=== PATIENT | male | born 1935 | race Caucasian/White ===

== ENCOUNTER 2019-04-25 11:21 | Observation (INO) | payer MEDICARE, SELFPAY ==
[2019-04-25] VITALS (13 sets, daily range): BP systolic 125–143; BP diastolic 73–96; PULSE 79–104; RESP 12–20; TEMP 36.6–37.9; O2SAT 90–98; BMI 26.8; BMI 26.9
--- NOTE | 2019-04-25 11:39 | EKG12_ITS ---
Test Reason : SOB Blood Pressure : / mmHG Vent. Rate : 087 BPM Atrial Rate : 087 BPM P-R Int : 166 ms QRS Dur : 084 ms QT Int : 352 ms P-R-T Axes : 030 -28 050 degrees QTc Int : 423 ms Normal sinus rhythm Normal ECG Confirmed by CAMELIA RIOS ([id number]), web content editor DENNIS MCINTOSH ([id number]) on 04/29/2019 2:39:15 PM Referred By: Elfego Lugo Confirmed By:CAMELIA RIOS
--- NOTE | 2019-04-25 11:39 | RAD_ITS ---
STUDY: X-RAY CHEST REASON FOR EXAM: Male, 83 years old. Worsening shortness of breath TECHNIQUE: PA and 2 lateral views of the chest. COMPARISON: 07/18/2016 FINDINGS: EKG leads overlie the chest Lungs are expanded with bibasilar atelectasis. No organizing infiltrate or effusion. There is no demonstrated pleural abnormality. Normal size heart. Normal mediastinum and kyung. Normal visualized pulmonary arteries. Normal visualized aortic arch and descending thoracic aorta. There are diffuse degenerative changes of the visualized thoracic spine. Normal visualized ribs, clavicles, and shoulders. There is no demonstrated abnormality of the visualized soft tissue structures of the upper abdomen. RAD/Chest PA and Lateral IMPRESSION: Bibasilar atelectasis, no superimposed infiltrate or effusion Electronically Signed: Arun Leyva MD at 12:24 EDT , Service support ,
[2019-04-25 11:46] LABS: Absolute Lymphocyte Count 0.79 X10^3/uL (0.83-4.51); Absolute Neutrophil Count 4.3 X10^3/uL (2.0-7.7); Basophil# 0.05 X10^3/uL; Basophil% 0.8 % (0-1); Eosinophil# 0.22 X10^3/uL; Eosinophils% 3.5 % (0-5); Hematocrit 43.4 % (40-54); Hemoglobin 14.1 g/dL (13.0-16.5); Lymphocyte # 0.79 X10^3/ul (4.0); Lymphocyte % 12.6 % (19-41); Mean Corp Hgb Conc 32.5 g/dL (32-36); Mean Corpuscular Volume 89.1 fL (80-94); Mean Platelet Vol. 9.2 fl (6.2-12.0); Monocyte# 0.84 X10^3/uL; Monocyte% 13.4 % (0-10); NRBC Flagged by Analyzer 0 % (0-5); Neutrophil # 4.33 X10^3/uL (2.7-7.7); Neutrophil % 69.4 % (47-70); Platelet Count 149 K/mm3 (150-450); RBC Distribution Width CV 12.6 % (11.6-14.6); RBC Distribution Width SD 41.3 fl (35.1-43.9); Red Blood Count 4.87 M/mm3 (4.6-6.2); White Blood Count 6.3 K/mm3 (4.4-11.0)
[2019-04-25] MEDS: Ipratropium/Albuterol Sulfate 3 ML AMPUL.NEB INHALATION (11:46)
[2019-04-25 11:55] LABS: International Normalized Ratio 1.1
[2019-04-25 11:56] LABS: Partial Thromboplast Time 30.4 Seconds (24.1-36.2)
[2019-04-25 12:03] LABS: ALB/GLOB Ratio 1.1 RATIO (0.9-2.4); AST(SGOT) 16 U/L (15-37); Alanine Aminotransfer ALT/SGPT 23 U/L (16-61); Albumin, Serum 3.7 g/dL (3.2-5.0); Alkaline Phosphatase 118 U/L (45-117); Anion Gap 3 (5-15); BUN 10 mg/dL (7-18); BUN/Creat Ratio 8.8 RATIO (10-20); Calcium,Total 8.5 mg/dL (8.5-10.1); Chloride 104 mmol/L (98-107); Creatinine, Serum 1.13 mg/dL (0.70-1.30); EST Glomerular Filtration Rate 66 mL/min (>60); Est Glom Filt Rate - Afr Amer 79 mL/min (>60); Estimated Creatinine Clearance 50.25 ml/min; Globulin 3.4 g/dL (2.2-4.2); Glucose 99 mg/dL (74-106); Potassium 4.1 mmol/L (3.5-5.1); Protein, Total 7.1 g/dL (6.4-8.2); Sodium Level 138 mmol/L (136-145)
[2019-04-25 12:11] LABS: Lactic Acid 1.6 mmol/L (0.4-2.0)
[2019-04-25] MEDS: Ceftriaxone 1 GM/50 ML BAG IV (12:20)
--- NOTE | 2019-04-25 12:21 | ED.DCSUM_ITS ---
History of Present Illness Chief Complaint: Cough Informant: EMS Narrative: Patient presenting for evaluation secondary to shortness of breath and cough. Patient has dementia history was provided through his who is his caregiver. Patient apparently has been ill over the course of the last couple of days but significantly worse yesterday. Its been associated with tactile fevers cough and shortness of breath. states that he has been having increased confusion. Cough is somewhat productive. No nausea vomiting or diarrhea associated with it. states that she recently has been having increasing difficulty with caring for him at home, and has been moving forward on attemp ting to find placement for him. Past Medical History - Allergies and Home Meds Allergies/Adverse Reactions: Allergies No Known Allergies Allergy (Verified 07/18/16 10:16) Primary Care Physician: Pipo Lutz MD [Primary Care Provider] - Past Medical History: - - Hypertension, asthma, dementia Lives: Spouse/ Significant Other Smoking Status: Former smoker Review of Systems All systems negative except as indicated General: Reports: Fever Respiratory: Reports: Dyspnea, Cough Gastrointestinal: Denies: Nausea, Vomiting Neurological: Reports: Weakness, - - Confusion Physical Exam Vital Signs/Narrative: Vital Signs Temp Pulse Resp BP Pulse Ox 04/25/19 11:47 88 20 H 04/25/19 11:43 100.3 F H 04/25/19 11:42 100.3 F H 94 12 133/88 H 96 04/25/19 11:40 96 04/25/19 11:22 100.0 F H 80 20 H 133/88 H 90 Inital Vital Signs reviewed: Yes - Hypoxia on room air as noted General: Well nourished, Well developed Head: Normocephalic, Atraumatic Eyes: Perrl, EOMI Neck: Supple, Nontender Cardiovascular: Regular rate, Regular rhythm, No murmurs Respiratory: Rhonchi, Wheezing - Right greater than left Abdomen: Soft, Nontender, Nondistended, Normal bowel sounds Extremities: Nontender, No edema Skin: Normal color, No rash Neurological: Alert, - - No lateralizing deficits. Patient is somewhat confused. Psychological: Normal affect Diagnostic/Tx/Re-eval Chest X-Ray - ED: 2 View, Read by ED Physician - Left lower lobe infiltrate noted with evidence of hiatal hernia - EKG Initial EKG Interpretation: - - Sinus rhythm of [address] segments normal T waves no evidence of acute ischemia or arrhythmia no change from prior EKG - Medical Decision Making Patient presented secondary to shortness of breath confusion. Patient was found to be hypoxic with wheezes and fever and asymmetric breath sounds. Work-up shows the patient to have a normal CBC CMP and lactic. EKG was unremarkable. Chest x-ray shows infiltrate. Patient was given a breathing treatment in the emergency department was placed on supplemental oxygen will be started on Rocephin and azithromycin. Social work was consulted to help with ultimate placement of the patient after his medical issue was treated in the hospital. Patient will be admitted to the hospitalist. Disposition: Admit to Med Surg ED Disposition - Plan for ED Patient: Disposition: Acute Care Hospital [facility] Diagnosis: Pneumonia, Hypoxia, Dementia
--- NOTE | 2019-04-25 12:27 | CM.ED ---
Social Work Patient daughter, Barbie able to provide this social organization professor with Health Care Power of Hemodialysis Patient Care Specialist documents. Patient does not have a Living Will and is not interested in completing one. Copy of Health Care Power of Hemodialysis Patient Care Specialist documents placed on patient chart. Barbie is patient health care power of attorney at law. Nisha SANDY, LAURA
--- NOTE | 2019-04-25 12:31 | CM.ED ---
Social Work Referral: Resources Informant: Dr. Bruner Chief Complaint: Per patient spouse things are getting hard at home. Living Situation: Patient lives with spouse in a 1-story home with no steps to enter. DME: Patient does not utilize any DME. ADL's: Per patient spouse patient needs stand by assist for ADL's. Resources: Elder Inorganic Chemical Technician. Patient family has been working with an elder compliance attorney for assistance in transitioning patient to a fdc setting as patient spouse is primary child care assistant for patient and now stating to be unable to meet patient needs. Patient spouse uses a cane to ambulate. HCPOA: Barbie Dutta (patient daughter) is HCPOA. Documents were placed on patient chart to be scanned to [facility]. Mental Status Exam: Patient confused. Patient unable to state time of year, day or month. Patient unaware of where patient is located at this time. This social media executive did attempt to orient patient x2 attempts and patient was unable to be oriented. Assessment: Met with patient, patient spouse, Elaine and patient daughter, Barbie in room. Introduced self as well as social media executive role, agreeable to meeting with this social media executive. Elaine stating to be working towards placement for patient over this past summer as Elaine is stating to not be able to care for patient at home. Patient has had home health services through [facility] in the past but is not active with any home health care. Elaine stating to not be interested in instructional aide care as he (patient) would not like that. Barbie stating to have been working with compliance attorney on Medicaid application, for the future and that currently Medicaid is pending. Elaine stating to have contacted the [facility] this morning and that the [facility] would be patient first choices at this time. Barbie is agreeable with above information as Barbie is Health Care Power of Inorganic Chemical Technician. Collaborating with Dr. Bruner, patient to be admitted for medical management. Social work to continue to follow patient on acute care setting with transition of care. Barbie and Elaine aware that social work will follow up with patient in acute care setting. Nisha Castillo INDUSTRIAL SEWER, LAURA
--- NOTE | 2019-04-25 12:47 | PCM.HP.STD ---
Problem List (1) Viral bronchitis Status: Acute (2) Asthma Status: Chronic (3) Depression Status: Chronic (4) Hypertension Status: Chronic (5) History of prostate cancer Status: Chronic (6) Hypoxia Status: Acute (7) Dementia Status: Chronic History of Present Illness Date of Admission: 04/25/19 Chief Complaint: Cough, sore throat and congestion. The patient is a 83 year old M with past medical history as mentioned above presented to the emergency room because of cough, weakness, congestion and sore throat. The patient is demented and was not able to provide detailed consistent history. Patient's was at the bedside and she provided most of the information. According to the patient's , patient has been sick for the last 2 to 3 days with productive cough with small amount of clear sputum, associated with low-grade fever, nasal and sinus congestion as well as sore throat and without aggravating or relieving factors. Since yesterday, patient has been more sick, having more sinus congestion and he has been coughing constantly. Patient mentioned that he has been having more shortness of breath since yesterday. Patient has history of asthma and his mentioned he has been having some occasional wheezes since yesterday and he has been using albuterol nebulizer. Patient's states that over the last several weeks, patient has been more weak and he is demented and she is not able to take care of him at home she has been looking into placement to halfway facility. In the emergency department, he had low-grade fever, pulse ox was 90% on room air, other vital signs are stable. His routine blood work was unremarkable. Lactic acid was normal. LFT was normal. Chest x-ray showed bilateral basilar atelectasis, no acute infiltrate or consolidation. He is being admitted for URTI, viral bronchitis with hypoxia. Past Medical History Past Medical History (Chronic Problems): Chronic Problems Asthma (Chronic) Depression (Chronic) Hypertension (Chronic) History of prostate cancer (Chronic) Dementia (Chronic) Allergies No Known Allergies Allergy (Verified 07/18/16 10:16) Home Medications: Ambulatory Orders Medication Instructions Recorded Latanoprost 0.005% [Xalatan 1 drop EACH EYE DAILY 11/17/15 Opthalmic] Mometasone Furoate [Asmanex 110 220 mcg INHALATION DAILY 11/17/15 mcg Twisthaler] Venlafaxine HCl [Effexor] 150 mg PO QHS 11/17/15 traZODone [Desyrel] 75 mg PO QHS 11/17/15 Memantine Hydrochloride [Namenda] 5 mg PO DAILY 07/18/16 Albuterol Inhaler [Ventolin Hfa] 1 - 2 puff INHALATION Q4H PRN PRN 07/20/16 #1 inhaler Amlodipine [Norvasc] 10 mg PO DAILY #30 tablet 07/20/16 Aspirin [Aspirin, Baby] 81 mg PO DAILY@0800 #30 tab.chew 07/20/16 Metoprolol(XL)Succ [Toprol Xl 25 mg PO DAILY #30 tablet 07/20/16 (Beta Tyron)] Benzonatate [Tessalon Perle] 100 mg PO TID 04/25/19 Montelukast Sodium [Singulair] 10 mg PO DAILY 04/25/19 Surgical History: - - Radical prostatectomy. Psychiatric History: Depression Lives: Spouse/ Significant Other Smoking Status: Former smoker Alcohol: None Drugs: None - *Family History Maternal History Items: No pertinent history Paternal History Items: No pertinent history Review of Systems Constitutional: Reports: Anorexia, Fever, Weakness, Fatigue. Denies: Chills Eyes: Reports: Redness. Denies: Blurred vision, Double vision, Drainage HEENT: Reports: Nasal Congestion, Sinus Drainage, Sore Throat. Denies: Difficulty Hearing, Ear Pain, Eye Pain Cardiovascular: Denies: Chest Pain, Chest Pressure, Chest Tightness, Palpitations, Syncope Respiratory: Reports: Cough, Shortness of Breath, Sputum production, Wheezing. Denies: Pleuritic Pain Gastrointestinal: Denies: Abdominal Pain, Constipation, Diarrhea, Nausea, Vomiting Genitourinary: Denies: Dysuria, Frequency, Hematuria Musculoskeletal: Denies: Arm Pain, Back Pain, Foot Pain Skin: Denies: Dryness, Rash Neurological: Denies: Balance problems, Double vision, Change in Speech, Slurred speech, Confusion, Headaches, Incoordination, Numbness Psychiatric: Reports: Depression. Denies: Anxiety Endocrine: Denies: Change in Body Habitus, Polydipsia, Polyuria VTE Information - Inpt Only VTE Present on Admission: No VTE Mechan Device Prophylaxis: None VTE Pharm Prophylaxis ordered?: Yes Patient Problems: Active and Suspected Problems Viral bronchitis (Acute) Hypoxia (Acute) - Physical Exam General: Alert, Cooperative, No apparent distress, Well nourished HEENT: Atraumatic, PERRLA, EOMI, Normocephalic Oral: Moist Mucosa, No Gingival or Mucosal Lesions/ Ulcerations Neck: Supple, No JVD, Negative Carotid Bruits, Trachea Midline, Thyroid Normal Size and Texture Lungs: No rales, Diminished, Rhonchi, Wheezes, - - Minimally diminished breath sounds bilateral, occasional wheezes, rhonchi. Cardiovascular: Regular rate, Regular Rhythm, Normal S1, Normal S2, PMI Normal Abdomen: Bowel Sounds Present, Soft, Non Tender, Non-Distended, No Hepato-splenomegaly Extremities: No clubbing, No cyanosis, No edema Skin: No rashes, No breakdown Lymphatic: No Cervical, Supraclavicular, or Inguinal Adenopathy Neurological: Cranial nerves II-XII grossly intact, Motor Exam 5/5 strength throughout Psych/Mental Status: Normal Affect, Appropriate Vital Signs Temp Pulse Resp BP Pulse Ox 100.3 F H 88 20 H 133/88 H 96 04/25/19 11:43 04/25/19 11:47 04/25/19 11:47 04/25/19 11:42 04/25/19 11:42 Oxygen Flow Rate (L/min) 2 Oxygen Delivery Method Nasal Cannula Weight: 187 lb 2.759 oz Body Mass Index (BMI) 26.8 Laboratory Tests Past 24 Hrs 04/25/19 04/25/19 04/25/19 11:35 11:35 11:35 WBC 6.3 RBC 4.87 Hgb 14.1 Hct 43.4 MCV 89.1 MCH 29.0 MCHC 32.5 RDW Std Deviation 41.3 RDW Coeff of Dolly 12.6 Plt Count 149 L MPV 9.2 Immature Gran % (Auto) 0.300 Neut % (Auto) 69.4 Lymph % (Auto) 12.6 L Ellsworth % (Auto) 13.4 H Eos % (Auto) 3.5 Baso % (Auto) 0.8 Absolute Neuts (auto) 4.3 Absolute Lymphs (auto) 0.79 L Nucleated RBC % 0 PT 14.0 INR 1.1 APTT 30.4 Sodium 138 Potassium 4.1 Chloride 104 Carbon Dioxide 31.0 Anion Gap 3 L BUN 10 Creatinine 1.13 Estim Creat Clear Calc 50.25 Est GFR (MDRD) Af Amer 79 Est GFR (MDRD) Non-Af 66 BUN/Creatinine Ratio 8.8 L Glucose 99 Lactic Acid Calcium 8.5 Total Bilirubin 0.30 AST 16 ALT 23 Alkaline Phosphatase 118 H Total Protein 7.1 Albumin 3.7 Globulin 3.4 Albumin/Globulin Ratio 1.1 04/25/19 11:35 WBC RBC Hgb Hct MCV MCH MCHC RDW Std Deviation RDW Coeff of Dolly Plt Count MPV Immature Gran % (Auto) Neut % (Auto) Lymph % (Auto) Ellsworth % (Auto) Eos % (Auto) Baso % (Auto) Absolute Neuts (auto) Absolute Lymphs (auto) Nucleated RBC % PT INR APTT Sodium Potassium Chloride Carbon Dioxide Anion Gap BUN Creatinine Estim Creat Clear Calc Est GFR (MDRD) Af Amer Est GFR (MDRD) Non-Af BUN/Creatinine Ratio Glucose Lactic Acid 1.6 Calcium Total Bilirubin AST ALT Alkaline Phosphatase Total Protein Albumin Globulin Albumin/Globulin Ratio Clinical Impression(s) from Imaging Studies Chest X-Ray 04/25/19 11:39 IMPRESSION: Bibasilar atelectasis, no superimposed infiltrate or effusion Electronically Signed: Arun Leyva MD at 12:24 EDT , Service support , Assessment/Plan All Active Problems Viral bronchitis (Acute) Hypoxia (Acute) This is an 83 years old male patient presented to the emergency room because of cough, weakness, sore throat and sinus congestion as well as red eyes, found to be hypoxic and he is being admitted for URTI/viral bronchitis with hypoxia. #1 URTI/viral bronchitis: Without evidence of acute pneumonia. Chest x-ray reviewed. Lactic acid is normal. No leukocytosis. Plan: Admit to [facility] for observation, IV fluids, sputum culture, respiratory panel for viruses, Tylenol as needed, Sudafed as needed, Robitussin-AC as needed, repeat chest x-ray tomorrow morning, urinalysis, repeat CBC and BMP tomorrow morning, albuterol every 4 hours, chest physiotherapy, incentive spirometer, PT OT evaluation and treatment. At this time, I do not think patient needs IV antibiotics and I will repeat chest x-ray tomorrow to look for pneumonia again. #2 hypoxia: Likely because of the URTI and bronchitis in the setting of history of asthma. He does have occasional wheezes. Pulse ox is 90% on room air. Improved with oxygen. Plan: Albuterol [id number], cough expectorant, chest physiotherapy. #3 physical debility/functional decline: According to the patient's , patient has been progressively weak over the last several weeks with dementia and she is unable to take care of him at home. She was looking into placement to halfway facility. Plan: PT OT eval and treatment, social work consult. #4 hypertension: Blood pressure stable, continue Norvasc and metoprolol. #5 history of prostate cancer: Status post radical prostatectomy, in remission stable. Patient does have chronic urinary continence. #6 depression: Continue trazodone and Effexor. #7 dementia: Continue Namenda. #8 asthma: With mild hypoxia, plan as above for albuterol [id number]. #9 DVT prophylaxis: Subcu Lovenox. This note was generated with [employer] dictation software. It may contain incorrect words, spelling, and punctuation that were not noted in checking the note before signing. Code Visit OBSV E&M: 62544 Initial observation care L3
--- NOTE | 2019-04-25 14:02 | CASEMGMT ---
SW spoke with patient's and daughter. Introduced self and role at [facility]. SW explained that SW is aware they were looking at [facility] for patient. They confirmed this plan. SW did give them a list of nursing homes that are in network with their insurance. [facility] was on this list. SW explained that SW will get in contact with [facility] regarding referral. Delia SANCHEZ SEED POTATO CUTTER
--- NOTE | 2019-04-25 14:25 | CASEMGMT ---
KAM called [facility] and spoke with Marleen regarding referral. KAM also faxed over information to [facility]. Delia SANCHEZ MSW
[2019-04-25] MEDS: Haloperidol Lactate 5 MG/ML Vial 2 MG IM (15:01)
[2019-04-25] MEDS: Albuterol 2.5 MG/3 ML VIAL.NEB. INHALATION ×2 (15:12→19:00)
--- NOTE | 2019-04-25 15:45 | NURSING ---
Patient incontinent of urine, total. Straight cath at this time to obtain urine sample.
[2019-04-25] MEDS: 0.9% Normal Saline 1,000 ML 75 ML IV (16:01)
[2019-04-25] MEDS: 0.9% NaCl Peripheral Flush Adult/Peds IV (16:02)
[2019-04-25 16:09] LABS: Bacteria 0 SEEN /hpf (None Seen); Mucous, Urine 0 SEEN /hpf (<or=2+); Red Blood Cells-Urine 0 SEEN /hpf (0-5); White Blood Cells 0 SEEN /hpf (0-5)
[2019-04-25 16:15] LABS: Color, Urine Yellow (Yellow); Glucose, Dipstick Normal (Normal); Ketone-Dipstick Negative (Negative); Leukocyte Esterase-Dipstick Negative /ul (Negative); Nitrite-Dipstick Negative (Negative); Occult Blood-Urine Negative /ul (Negative); Protein-Dipstick Negative (Negative); Specific Gravity, Urine 1.005 (1.002-1.030); Urine Bilirubin Dipstick Negative (Negative); Urine Clarity Clear (Clear); Urine Urobilinogen Normal (Normal)
[2019-04-25 16:30] LABS: Squamous Epithelial Cells - UA 0-5 SEEN /hpf (0-5)
[2019-04-25] MEDS: Benzonatate 100 MG Capsule PO (22:32)
[2019-04-25] MEDS: Venlafaxine XR 150 MG Capsule PO (22:32)
[2019-04-25] MEDS: traZODone 50 MG Tablet 75 MG PO (22:32)
[2019-04-26] VITALS (16 sets, daily range): BP systolic 122–141; BP diastolic 69–92; PULSE 72–107; RESP 14–24; TEMP 36.1–37.6; O2SAT 90–96
[2019-04-26] MEDS: 0.9% Normal Saline 1,000 ML 75 ML IV ×2 (03:44→17:54)
[2019-04-26] MEDS: Benzonatate 100 MG Capsule PO ×3 (05:11→20:24)
--- NOTE | 2019-04-26 05:45 | RAD_ITS ---
STUDY: X-RAY CHEST REASON FOR EXAM: Male, 83 years old. Shortness of breath/dyspnea. TECHNIQUE: Single AP portable view of the chest. COMPARISON: Comparison is made with prior examination dated April 25, 2019. FINDINGS: Stable elevation of the right hemidiaphragm. Mild increased markings at the left lung base. This is suggestive of early left basilar atelectasis and/or infiltrate. This is unchanged. There is no demonstrated pleural abnormality. Normal size heart. Normal mediastinum and kyung. Normal visualized pulmonary arteries. There is atherosclerotic tortuosity of the aortic arch and descending thoracic aorta. There are diffuse degenerative changes of the visualized thoracic spine. There is degenerative osteoarthritis of the bilateral shoulders. There is no demonstrated abnormality of the visualized soft tissue structures of the upper abdomen. RAD/Chest 1 View (Portable) IMPRESSION: Increased markings at the left lung base suggestive of left basilar atelectasis and infiltrate. This is unchanged. The right lung base is clear. Electronically Signed: Thomas Quinn, at 8:32 EDT , Service support ,
[2019-04-26] MEDS: Albuterol 2.5 MG/3 ML VIAL.NEB. INHALATION ×5 (06:47→23:02)
[2019-04-26 07:03] LABS: Absolute Lymphocyte Count 0.83 X10^3/uL (0.83-4.51); Absolute Neutrophil Count 6.4 X10^3/uL (2.0-7.7); Basophil# 0.02 X10^3/uL; Basophil% 0.2 % (0-1); Eosinophil# 0.03 X10^3/uL; Eosinophils% 0.4 % (0-5); Hemoglobin 13.1 g/dL (13.0-16.5); Lymphocyte # 0.83 X10^3/ul (4.0); Mean Corp Hgb Conc 32.8 g/dL (32-36); Mean Corpuscular Hgb 28.4 pg (27.0-32.0); Mean Corpuscular Volume 86.6 fL (80-94); Mean Platelet Vol. 9.6 fl (6.2-12.0); Monocyte# 0.97 X10^3/uL; Monocyte% 11.7 % (0-10); NRBC Flagged by Analyzer 0 % (0-5); Neutrophil # 6.44 X10^3/uL (2.7-7.7); Neutrophil % 77.5 % (47-70); Platelet Count 154 K/mm3 (150-450); RBC Distribution Width SD 40.6 fl (35.1-43.9); Red Blood Count 4.62 M/mm3 (4.6-6.2); White Blood Count 8.3 K/mm3 (4.4-11.0)
[2019-04-26 07:35] LABS: Anion Gap 7 (5-15); BUN 10 mg/dL (7-18); BUN/Creat Ratio 8.5 RATIO (10-20); Calcium,Total 7.9 mg/dL (8.5-10.1); Chloride 105 mmol/L (98-107); Creatinine, Serum 1.18 mg/dL (0.70-1.30); EST Glomerular Filtration Rate 62 mL/min (>60); Est Glom Filt Rate - Afr Amer 76 mL/min (>60); Glucose 123 mg/dL (74-106); Sodium Level 139 mmol/L (136-145)
--- NOTE | 2019-04-26 08:07 | PN_ITS ---
Patient Problems: Active and Suspected Problems Pneumonia (Acute) Viral bronchitis (Acute) Hypoxia (Acute) Subjective: Chief complaint: Follow-up after admission for URTI due to parainfluenza, viral bronchitis and hypoxia. Patient seen and examined. No acute events overnight. He has been confused, intermittently trying to get out of bed. Patient does have history of dementia. According to nursing staff, patient still coughing. Patient is not able to provide any history because of dementia. He has been afebrile, blood pressure noted are stable, pulse ox is 92% on 2 L. - Physical Exam General: Alert, Cooperative, No apparent distress, Disoriented HEENT: Atraumatic, PERRLA, EOMI, Normocephalic Oral: Moist Mucosa, No Gingival or Mucosal Lesions/ Ulcerations Neck: Supple, No JVD, Negative Carotid Bruits, Trachea Midline, Thyroid Normal Size and Texture Lungs: Clear to auscultation, No wheeze, No rales, Diminished, Rhonchi Cardiovascular: Regular rate, Regular Rhythm, Normal S1, Normal S2, PMI Normal Abdomen: Bowel Sounds Present, Soft, Non Tender, Non-Distended, No Hepato- splenomegaly Extremities: No clubbing, No cyanosis, No edema Skin: No rashes, No breakdown Lymphatic: No Cervical, Supraclavicular, or Inguinal Adenopathy Neurological: Cranial nerves II-XII grossly intact, Motor Exam 5/5 strength throughout Psych/Mental Status: Flat Affect Vital Signs Temp Pulse Resp BP Pulse Ox 99.7 F H 80 20 H 141/78 H 92 04/26/19 06:38 04/26/19 06:47 04/26/19 06:47 04/26/19 06:38 04/26/19 06:47 Oxygen Flow Rate (L/min) 2 Oxygen Delivery Method Nasal Cannula Weight: 182 lb 5.156 oz Body Mass Index (BMI) 26.9 Intake and Output for Last 24 Hours 04/24/19 04/25/19 04/26/19 23:59 23:59 23:59 Intake Total 665 / 665 938.75 / 938.75 Output Total 275 / 275 50 / 50 Balance 390 / 390 888.75 / 888.75 Microbiology Past 72 Hours 04/25/19 13:24 Respiratory Panel (PCR) - Final Mucosa - Nasopharyngeal Parainfluenza 4 Laboratory Tests Past 24 Hrs 04/25/19 04/25/19 04/25/19 11:35 11:35 11:35 WBC 6.3 RBC 4.87 Hgb 14.1 Hct 43.4 MCV 89.1 MCH 29.0 MCHC 32.5 RDW Std Deviation 41.3 RDW Coeff of Dolly 12.6 Plt Count 149 L MPV 9.2 Immature Gran % (Auto) 0.300 Neut % (Auto) 69.4 Lymph % (Auto) 12.6 L [place] % (Auto) 13.4 H Eos % (Auto) 3.5 Baso % (Auto) 0.8 Absolute Neuts (auto) 4.3 Absolute Lymphs (auto) 0.79 L Nucleated RBC % 0 PT 14.0 INR 1.1 APTT 30.4 Sodium 138 Potassium 4.1 Chloride 104 Carbon Dioxide 31.0 Anion Gap 3 L BUN 10 Creatinine 1.13 Estim Creat Clear Calc 50.25 Est GFR (MDRD) Af Amer 79 Est GFR (MDRD) Non-Af 66 BUN/Creatinine Ratio 8.8 L Glucose 99 Lactic Acid Calcium 8.5 Total Bilirubin 0.30 AST 16 ALT 23 Alkaline Phosphatase 118 H Total Protein 7.1 Albumin 3.7 Globulin 3.4 Albumin/Globulin Ratio 1.1 Urine Color Urine Clarity Urine pH Ur Specific [place] Urine Protein Urine Glucose (UA) Urine Ketones Urine Occult Blood Urine Nitrite Urine Bilirubin Urine Urobilinogen Ur Leukocyte Esterase Urine RBC Urine WBC Ur Squamous Epith Cells Urine Bacteria Urine Mucus 04/25/19 04/25/19 04/26/19 11:35 16:00 06:34 WBC 8.3 RBC 4.62 Hgb 13.1 Hct 40.0 MCV 86.6 MCH 28.4 MCHC 32.8 RDW Std Deviation 40.6 RDW Coeff of Dolly 13.0 Plt Count 154 MPV 9.6 Immature Gran % (Auto) 0.200 Neut % (Auto) 77.5 H Lymph % (Auto) 10.0 L [place] % (Auto) 11.7 H Eos % (Auto) 0.4 Baso % (Auto) 0.2 Absolute Neuts (auto) 6.4 Absolute Lymphs (auto) 0.83 Nucleated RBC % 0 PT INR APTT Sodium Potassium Chloride Carbon Dioxide Anion Gap BUN Creatinine Estim Creat Clear Calc Est GFR (MDRD) Af Amer Est GFR (MDRD) Non-Af BUN/Creatinine Ratio Glucose Lactic Acid 1.6 Calcium Total Bilirubin AST ALT Alkaline Phosphatase Total Protein Albumin Globulin Albumin/Globulin Ratio Urine Color Yellow Urine Clarity Clear Urine pH 7.0 Ur Specific [place] 1.005 Urine Protein Negative Urine Glucose (UA) Normal Urine Ketones Negative Urine Occult Blood Negative Urine Nitrite Negative Urine Bilirubin Negative Urine Urobilinogen Normal Ur Leukocyte Esterase Negative Urine RBC 0 SEEN Urine WBC 0 SEEN Ur Squamous Epith Cells 0-5 SEEN Urine Bacteria 0 SEEN Urine Mucus 0 SEEN 04/26/19 06:34 WBC RBC Hgb Hct MCV MCH MCHC RDW Std Deviation RDW Coeff of Dolly Plt Count MPV Immature Gran % (Auto) Neut % (Auto) Lymph % (Auto) Gran[place] % (Auto) Eos % (Auto) Baso % (Auto) Absolute Neuts (auto) Absolute Lymphs (auto) Nucleated RBC % PT INR APTT Sodium 139 Potassium 4.0 Chloride 105 Carbon Dioxide 27.0 Anion Gap 7 BUN 10 Creatinine 1.18 Estim Creat Clear Calc 46.60 Est GFR (MDRD) Af Amer 76 Est GFR (MDRD) Non-Af 62 BUN/Creatinine Ratio 8.5 L Glucose 123 H Lactic Acid Calcium 7.9 L Total Bilirubin AST ALT Alkaline Phosphatase Total Protein Albumin Globulin Albumin/Globulin Ratio Urine Color Urine Clarity Urine pH Ur Specific [place] Urine Protein Urine Glucose (UA) Urine Ketones Urine Occult Blood Urine Nitrite Urine Bilirubin Urine Urobilinogen Ur Leukocyte Esterase Urine RBC Urine WBC Ur Squamous Epith Cells Urine Bacteria Urine Mucus Medical Necessity - Tobacco Use Smoking Status: Former smoker Tobacco Use: Cigarettes, Pipe Assessment/Plan All Active Problems Pneumonia (Acute) Viral bronchitis (Acute) Hypoxia (Acute) This is an 83 years old male patient presented to the emergency room because of cough, weakness, sore throat and sinus congestion as well as red eyes, found to be hypoxic and he is being admitted for URTI/viral bronchitis with hypoxia. #1 URTI/viral bronchitis: He tested positive for parainfluenza. He has been afebrile, still requiring oxygen at 2 L. Repeat chest x-ray reviewed, no evidence of acute infiltrate or consolidation, pending official report. Again, pneumonia is unlikely. Blood and sputum cultures are pending. Plan to continue same treatment, ambulate. #2 hypoxia: Likely because of the URTI and bronchitis in the setting of history of asthma. He is on albuterol every 4 hours. Pulse ox is 92% on 2 L. Plan as above. #3 physical debility/functional decline: According to the patient's , patient has been progressively weak over the last several weeks with dementia and she is unable to take care of him at home. She was looking into placement to senior care facility. Patient probably will need placement to senior care facility. #4 hypertension: Blood pressure stable, continue Norvasc and metoprolol. #5 history of prostate cancer: Status post radical prostatectomy, in remission stable. Patient does have chronic urinary continence. #6 depression: Continue trazodone and Effexor. #7 dementia: Continue Namenda. #8 asthma: With mild hypoxia, continue albuterol [id number]. #9 DVT prophylaxis: Subcu Lovenox. This note was generated with [employer] dictation software. It may contain incorrect words, spelling, and punctuation that were not noted in checking the note before signing. Code Visit OBSV E&M: 29355 Subsequent observation care L2
--- NOTE | 2019-04-26 09:45 | CASEMGMT ---
KAM called Bebe at [facility]. She said she spoke with patient's this am already and she told her that patient had some behaviors at [facility] last night and that this is not like him. She said they are coming in for a tour today at . KAM also let her know patient currently has a sitter as he keeps trying to get out of bed. SNF's cannot accept patient's until they have been free of a sitter for 24 hours. They also need to be free of getting Halodol for at least 24 hours. Patient also needs a pre-cert. Plan: SNF pending acceptance and insurance approval. Delia SANDY
[2019-04-26] MEDS: Memantine Hydrochloride 5 MG Tablet PO (10:11)
[2019-04-26] MEDS: Metoprolol(XL)Succ 25 MG Tablet PO (10:11)
[2019-04-26] MEDS: Montelukast 10 MG Tablet PO (10:12)
[2019-04-26] MEDS: Enoxaparin 40 MG/0.4 ML Syringe SC (10:12)
[2019-04-26] MEDS: Aspirin 81 MG TAB.CHEW PO (10:12)
[2019-04-26] MEDS: amLODIPine 10 MG Tablet PO (10:12)
[2019-04-26] MEDS: Latanoprost 0.005% 1 Bottle 1 DRP EACH EYE (10:15)
--- NOTE | 2019-04-26 10:49 | NURSING ---
Patient resting quietly with family in room. Sitter removed.
--- NOTE | 2019-04-26 11:02 | NURSING ---
Pulling at tubing and equipment, attempting to get out of bed. Sitter placed back in room.
--- NOTE | 2019-04-26 11:40 | NURSING ---
After patient returned back to bed from having a BM, pt no longer pullling at tubes, no further attempts to get OOB, resting peacefully with and daughter at bedside eating lunch.
--- NOTE | 2019-04-26 12:15 | NURSING ---
PATIENT GOTTEN UP IN CHAIR BY THERAPY, CONTINUES TO BE CALM AND CORPORATIVE, NO ATTEMPTS TO PULL AT MEDICAL EQUIPMENT. PT IN CHAIR AT THIS TIME WITH CHAIR EXIT ON.
--- NOTE | 2019-04-26 12:42 | NURSING ---
Sitter removed from room.
--- NOTE | 2019-04-26 12:46 | CASEMGMT ---
RN CM Note. Attempted to complete MURGUIA form. Pt confused and unable to sign at this time. Family is out of room. CM will attempt to speak with family when they return. Ganesh GILLESPIEN RN ACM
[2019-04-26] MEDS: Amitriptyline 10 MG Tablet 5 MG PO ×2 (13:06→21:49)
--- NOTE | 2019-04-26 13:10 | CHAPLAIN ---
Type of Pastoral Visit _x__ Initial Visit ___ Follow-up Visit ___ On-call Visit ___ General Patient Visit ___ Spiritual Assessment ___ Family Conference ___ Bereavement ___ Rapid Response ___ Code Blue ___ Other (describe below) Pastoral Care Referral From _x__ Patient _x__ Family ___ Nurse ___ Physician ___ Bacon De Rinder ___ Occupational Therapy Asst ___ Other (describe below) Sacrament/Intervention _x__ Active listening ___ Anointing ___ Denominational ___ Bereavement ___ Communion _x__ Kenyatta exploration ___ _x__ Life review _x__ Prayer ___ Reconciliation ___ Sacrament of Sick _x__ Supportive presence ___ Wedding ___ Other (describe below) Pastoral Comments conversation and intervention were mostly with and for spouse and daughter; patient was cooperative and accepted support but did not speak much nor initiate any dialogue; daughter is concerned about having spiritual support for her father; family is waiting to see if approvals are given for move into ECF; offer of support given to family as well as patient for today and in the future while in our care
--- NOTE | 2019-04-26 13:31 | CASEMGMT ---
As is already documented, POA forms brought into emergency room, placed on pt's chart, and Barbie is POA. Pt does not have a living will. ROOSEVELT Velazco
--- NOTE | 2019-04-26 14:42 | NURSING ---
PT walked to br on his own, and he also pulled out his IV prior to ambulating to br.
--- NOTE | 2019-04-26 14:57 | CASEMGMT ---
Addendum entered by Delia Loredo 04/26/19 15:26: SW spoke with Bebe at [facility] and family was there for a tour today. She said she was honest with family and the concern that he has a sitter. She said they are aware that [facility] may not be able to accept patient. They will see how he does over the weekend. Delia SANDY Original Note: KAM faxed PT/OT evaluations to [facility] for updates. Patient still has a sitter. He will need to be free of a sitter for 24 hours before a SNF will accept him. He will also need insurance authorization. Delia SANDY
[2019-04-26] MEDS: 0.9% NaCl Peripheral Flush Adult/Peds IV (15:28)
--- NOTE | 2019-04-26 15:46 | CASEMGMT ---
Per RN patient has been sitter free since lunch time. Delia SANCHEZ IPHONE DEVELOPER
--- NOTE | 2019-04-26 16:00 | CASEMGMT ---
Family has still not returned to pt room. This RN CM attempted to reach /daughter(HPOA) without success at this time. Pt is confused and unable to sign. Unable to complete MURGUIA form at this time. This RN CM will leave MURGUIA form for CM tomorrow to complete with family. SStaten [place]ESSY [place]
[2019-04-26] MEDS: Magnesium Hydroxide 30 ML UDC PO (17:52)
[2019-04-26] MEDS: Venlafaxine XR 150 MG Capsule PO (20:24)
[2019-04-26] MEDS: traZODone 50 MG Tablet 75 MG PO (20:24)
[2019-04-27] VITALS (11 sets, daily range): BP systolic 121–128; BP diastolic 65–81; PULSE 77–89; RESP 16–22; TEMP 36.8–36.9; O2SAT 93–98
[2019-04-27] MEDS: Albuterol 2.5 MG/3 ML VIAL.NEB. INHALATION ×6 (02:10→23:08)
[2019-04-27] MEDS: 0.9% Normal Saline 1,000 ML 75 ML IV (05:53)
[2019-04-27] MEDS: Benzonatate 100 MG Capsule PO ×3 (05:54→22:13)
--- NOTE | 2019-04-27 08:26 | PCM.PROGNOTE ---
Patient Problems: Active and Suspected Problems Pneumonia (Acute) Viral bronchitis (Acute) Hypoxia (Acute) Subjective: Chief complaint: Follow-up after admission for URTI due to parainfluenza, viral bronchitis and hypoxia. Patient seen and examined. No acute events overnight. He remained confused and disoriented. He was able to answer couple questions. He mentioned that he feels fair, denied worsening shortness of breath. Still having mild cough. He has been afebrile, blood pressure and heart are stable, pulse ox is 94% on 3 L. - Physical Exam General: Alert, Cooperative, No apparent distress, Disoriented HEENT: Atraumatic, PERRLA, EOMI, Normocephalic Oral: Moist Mucosa, No Gingival or Mucosal Lesions/ Ulcerations Neck: Supple, No JVD, Negative Carotid Bruits, Trachea Midline, Thyroid Normal Size and Texture Lungs: Clear to auscultation, Normal air movement, No rhonchi, No wheeze, No rales, Diminished Cardiovascular: Regular rate, Regular Rhythm, Normal S1, Normal S2, PMI Normal Abdomen: Bowel Sounds Present, Soft, Non Tender, Non-Distended, No Hepato-splenomegaly Extremities: No clubbing, No cyanosis, No edema Skin: No rashes, No breakdown Lymphatic: No Cervical, Supraclavicular, or Inguinal Adenopathy Neurological: Cranial nerves II-XII grossly intact, Neuro grossly intact Psych/Mental Status: Flat Affect Vital Signs Temp Pulse Resp BP Pulse Ox 98.5 F 80 16 127/74 H 94 04/27/19 02:27 04/27/19 07:03 04/27/19 07:03 04/27/19 02:27 04/27/19 07:03 Oxygen Flow Rate (L/min) 3 Oxygen Delivery Method Nasal Cannula Weight: 182 lb 5.156 oz Body Mass Index (BMI) 26.9 Intake and Output for Last 24 Hours 04/25/19 04/26/19 04/27/19 23:59 23:59 23:59 Intake Total 665 / 665 1938.75 / 1938.75 896.25 / 896.25 Output Total 275 / 275 50 / 50 Balance 390 / 390 1888.75 / 1888.75 896.25 / 896.25 Microbiology Past 72 Hours 04/25/19 15:30 Gram Stain - Final Sputum, Expectorated/Coughed Respiratory Culture - Preliminary 04/25/19 13:24 Respiratory Panel (PCR) - Final Mucosa - Nasopharyngeal Parainfluenza 4 Medical Necessity - Tobacco Use Smoking Status: Former smoker Tobacco Use: Cigarettes, Pipe Assessment/Plan All Active Problems Pneumonia (Acute) Viral bronchitis (Acute) Hypoxia (Acute) This is an 83 years old male patient presented to the emergency room because of cough, weakness, sore throat and sinus congestion as well as red eyes, found to be hypoxic and he is being admitted for URTI/viral bronchitis with hypoxia. #1 URTI/viral bronchitis: Secondary to parainfluenza. He has been afebrile, oxygen requirement slightly increased to 3 L. Chest x-ray that was done yesterday official read as left lung base atelectasis and infiltrate. Patient remained afebrile, no leukocytosis. Sputum culture revealed mixed respiratory andree. Blood cultures pending. I still think that patient does not have pneumonia. Plan: I will start empiric Levaquin, DC IV fluids, ambulate, wean off oxygen, placement to detention facility. #2 hypoxia: Likely because of the URTI and bronchitis in the setting of history of asthma. Today, is requiring more oxygen at 3 L. Lungs are clear to auscultation. Plan to start empiric antibiotics as above. #3 physical debility/functional decline: According to the patient's , patient has been progressively weak over the last several weeks with dementia and she is unable to take care of him at home. Plan for placement to detention facility. #4 hypertension: Blood pressure stable, continue Norvasc and metoprolol. #5 history of prostate cancer: Status post radical prostatectomy, in remission stable. Patient does have chronic urinary continence. #6 depression: Continue trazodone and Effexor. #7 dementia: Continue Namenda. #8 asthma: With mild hypoxia, continue albuterol [id number]. #9 DVT prophylaxis: Subcu Lovenox. This note was generated with [employer] dictation software. It may contain incorrect words, spelling, and punctuation that were not noted in checking the note before signing. Code Visit Inpatient E&M: 11291 Subs Hosp L2
[2019-04-27] MEDS: Enoxaparin 40 MG/0.4 ML Syringe SC (08:53)
[2019-04-27] MEDS: Memantine Hydrochloride 5 MG Tablet PO (08:53)
[2019-04-27] MEDS: Aspirin 81 MG TAB.CHEW PO (08:53)
[2019-04-27] MEDS: Montelukast 10 MG Tablet PO (08:53)
[2019-04-27] MEDS: amLODIPine 10 MG Tablet PO (08:53)
[2019-04-27] MEDS: Metoprolol(XL)Succ 25 MG Tablet PO (08:53)
[2019-04-27] MEDS: Latanoprost 0.005% 1 Bottle 1 DRP EACH EYE (08:54)
[2019-04-27] MEDS: levoFLOXacin IV 750 MG/150 ML BAG 100 MG IV (10:56)
--- NOTE | 2019-04-27 18:22 | NURSING ---
Patient increasingly agitated. Attempting to get out of bed several times. I am looking for my pants. Reminded patient several times that his took them home. Doesn't want a pair of hospital pants to wear. 1:1 of little value. Patient assisted up to bathroom and back to bed. Continent of urine. Continues to set off bed alarm while attempting to get up out of bed. SOUR BLEACHING PLEATER remains at bedside with patient. RN called pharmacy to send SHAYLA Warren.
[2019-04-27] MEDS: Amitriptyline 10 MG Tablet 5 MG PO (18:44)
[2019-04-27] MEDS: traZODone 50 MG Tablet 75 MG PO (22:13)
[2019-04-27] MEDS: Venlafaxine XR 150 MG Capsule PO (22:13)
[2019-04-28] VITALS (10 sets, daily range): BP systolic 126–135; BP diastolic 59–77; PULSE 69–85; RESP 14–24; TEMP 36.7–36.9; O2SAT 91–96
[2019-04-28] MEDS: Albuterol 2.5 MG/3 ML VIAL.NEB. INHALATION ×4 (07:13→19:54)
--- NOTE | 2019-04-28 07:57 | PN_ITS ---
Patient Problems: Active and Suspected Problems Pneumonia (Acute) Viral bronchitis (Acute) Hypoxia (Acute) Subjective: Chief complaint: Follow-up after admission for URTI due to parainfluenza, viral bronchitis and hypoxia. Patient seen and examined. No acute events overnight. Patient remained confused and disoriented which is his baseline. When I asked him about his breathing, he said it is not good. Apparently, he received breathing treatment this morning. He is having less cough. He has been afebrile, blood pressure has stable, pulse ox is 96% on 1 L. - Physical Exam General: Alert, Cooperative, No apparent distress, Confused, Disoriented HEENT: Atraumatic, PERRLA, EOMI, Normocephalic Oral: Moist Mucosa, No Gingival or Mucosal Lesions/ Ulcerations Neck: Supple, No JVD, Trachea Midline, Thyroid Normal Size and Texture Lungs: No rhonchi, No rales, Diminished, Wheezes, - - Decreased breath sounds bilaterally. Cardiovascular: Regular rate, Regular Rhythm, Normal S1, Normal S2, PMI Normal Abdomen: Bowel Sounds Present, Soft, Non Tender, Non-Distended, No Hepato- splenomegaly Extremities: No clubbing, No cyanosis, No edema Skin: No rashes, No breakdown Lymphatic: No Cervical, Supraclavicular, or Inguinal Adenopathy Neurological: Cranial nerves II-XII grossly intact, Neuro grossly intact Psych/Mental Status: Appropriate, Flat Affect Vital Signs Temp Pulse Resp BP Pulse Ox 98.3 F 85 20 H 127/59 H 94 04/28/19 04:10 04/28/19 07:13 04/28/19 07:13 04/28/19 04:10 04/28/19 07:13 Oxygen Flow Rate (L/min) 1.5 Oxygen Delivery Method Nasal Cannula Weight: 182 lb 5.156 oz Body Mass Index (BMI) 26.9 Intake and Output for Last 24 Hours 04/26/19 04/27/19 04/28/19 23:59 23:59 23:59 Intake Total 1938.75 / 193.75 192.25 / 1925.25 30 / 30 Output Total 50 / 50 Balance 1888.75 / 188.75 1925. / 1925. 30 / 30 Microbiology Past 72 Hours 04/25/19 11:35 Blood Culture - Preliminary Blood Culture (Wb) - Anticubital Left No growth in 48 hours. 04/25/19 12:20 Blood Culture - Preliminary Blood Culture (Wb) - Anticubital Right No growth in 48 hours. 04/25/19 15:30 Gram Stain - Final Sputum, Expectorated/Coughed Respiratory Culture - Preliminary 04/25/19 13:24 Respiratory Panel (PCR) - Final Mucosa - Nasopharyngeal Parainfluenza 4 Medical Necessity - Tobacco Use Smoking Status: Former smoker Tobacco Use: Cigarettes, Pipe Assessment/Plan All Active Problems Pneumonia (Acute) Viral bronchitis (Acute) Hypoxia (Acute) This is an 83 years old male patient presented to the emergency room because of cough, weakness, sore throat and sinus congestion as well as red eyes, found to be hypoxic and he is being admitted for URTI/viral bronchitis with hypoxia. #1 URTI/viral bronchitis: Secondary to parainfluenza. He has been afebrile, oxygen requirement is down to 1 L. He is on empiric IV Levaquin. Chest x-ray that was done yesterday official read as left lung base atelectasis and infiltrate. Patient remained afebrile, no leukocytosis. Sputum culture revealed mixed respiratory andree. Blood cultures showed no growth in 48 hours. I still think that patient does not have pneumonia. Plan to continue same treatment, wean down oxygen, awaiting placement to [facility] facility. #2 hypoxia: Likely because of the URTI and bronchitis in the setting of history of asthma. Today, pulse ox is 96% on 1 L. He does have some wheezing today, plan as above. #3 physical debility/functional decline: According to the patient's , patient has been progressively weak over the last several weeks with dementia and she is unable to take care of him at home. Plan for placement to [facility] facility. #4 hypertension: Blood pressure stable, continue Norvasc and metoprolol. #5 history of prostate cancer: Status post radical prostatectomy, in remission stable. Patient does have chronic urinary continence. #6 depression: Continue trazodone and Effexor. #7 dementia: Continue Namenda. #8 asthma: With mild hypoxia, oxygen requirement has been decreasing, continue albuterol [id number]. #9 DVT prophylaxis: Subcu Lovenox. This note was generated with [employer] software. It may contain incorrect words, spelling, and punctuation that were not noted in checking the note before signing. Code Visit OBSV E&M: 13207 Subsequent observation care L2
[2019-04-28] MEDS: Aspirin 81 MG TAB.CHEW PO (10:01)
[2019-04-28] MEDS: Memantine Hydrochloride 5 MG Tablet PO (10:01)
[2019-04-28] MEDS: Montelukast 10 MG Tablet PO (10:01)
[2019-04-28] MEDS: amLODIPine 10 MG Tablet PO (10:01)
[2019-04-28] MEDS: Metoprolol(XL)Succ 25 MG Tablet PO (10:01)
[2019-04-28] MEDS: Enoxaparin 40 MG/0.4 ML Syringe SC (10:04)
[2019-04-28] MEDS: Latanoprost 0.005% 1 Bottle 1 DRP EACH EYE (10:04)
[2019-04-28] MEDS: Benzonatate 100 MG Capsule PO ×2 (15:13→21:44)
[2019-04-28] MEDS: traZODone 50 MG Tablet 75 MG PO (21:44)
[2019-04-28] MEDS: Venlafaxine XR 150 MG Capsule PO (21:44)
[2019-04-29] VITALS (11 sets, daily range): BP systolic 116–131; BP diastolic 68–78; PULSE 70–92; RESP 14–18; TEMP 36.6–36.7; O2SAT 88–93
[2019-04-29] MEDS: Amitriptyline 10 MG Tablet 5 MG PO ×3 (01:00→22:52)
[2019-04-29] MEDS: Albuterol 2.5 MG/3 ML VIAL.NEB. INHALATION ×3 (02:55→19:34)
[2019-04-29] MEDS: Benzonatate 100 MG Capsule PO ×3 (06:27→21:44)
[2019-04-29] MEDS: Montelukast 10 MG Tablet PO (08:39)
[2019-04-29] MEDS: Memantine Hydrochloride 5 MG Tablet PO (08:39)
[2019-04-29] MEDS: Aspirin 81 MG TAB.CHEW PO (08:39)
[2019-04-29] MEDS: amLODIPine 10 MG Tablet PO (08:39)
[2019-04-29] MEDS: Enoxaparin 40 MG/0.4 ML Syringe SC (08:39)
[2019-04-29] MEDS: Metoprolol(XL)Succ 25 MG Tablet PO (08:40)
[2019-04-29] MEDS: Latanoprost 0.005% 1 Bottle 1 DRP EACH EYE (08:49)
[2019-04-29] MEDS: levoFLOXacin IV 750 MG/150 ML BAG 100 MG IV (08:50)
--- NOTE | 2019-04-29 10:02 | CASEMGMT ---
KAM faxed updates to Bebe at [facility]. KAM called Bebe and let her know patient is doing better and has not had a sitter since Monday at lunch time. KAM told her at most he tries to get up and walk. KAM also asked her if [facility] would deny skilled would they be willing to accept him on his pending Medicaid. She said they likely would as she has been talking with the family extensively. The family is also working with an elder patent attorney to get Medicaid and intermodal owner operator truck driver care lined up. She will start pre-cert for patient. Plan: [facility] pending insurance approval. Delia SANCHEZ MSW
--- NOTE | 2019-04-29 11:36 | PN_ITS ---
Patient Problems: Active and Suspected Problems Pneumonia (Acute) Viral bronchitis (Acute) Hypoxia (Acute) Subjective: Patient seen and examined. He has no complaints and was quite lethargic. Review of systems was quite negative. Labs and vitals reviewed. Vitals/I&O's: Vital Signs Temp Pulse Resp BP Pulse Ox 97.8 F 92 14 121/71 H 91 04/29/19 08:58 04/29/19 08:58 04/29/19 08:58 04/29/19 08:58 04/29/19 08:58 Oxygen Flow Rate (L/min) 2 Oxygen Delivery Method Room Air Weight: 182 lb 5.156 oz Body Mass Index (BMI) 26.9 Intake and Output for Last 24 Hours 04/27/19 04/28/19 04/29/19 23:59 23:59 23:59 Intake Total 1925.25 / 1925.25 470 / 470 200 / 200 Balance 1925.25 / 1925.25 470 / 470 200 / 200 General: Alert, No apparent distress, Lethargic HEENT: Atraumatic, PERRLA, EOMI, Normocephalic Oral: Dry Mucosa Neck: Supple, No JVD, Negative Carotid Bruits Lungs: Clear to auscultation, Normal air movement, No rhonchi, No wheeze, No rales Cardiovascular: Regular rate, Regular Rhythm, Normal S1, Normal S2, No murmurs Abdomen: Bowel Sounds Present, Soft, Non Tender, Non-Distended, No Hepato- splenomegaly Extremities: No clubbing, No cyanosis, No edema, Capillary Refill Less than 3 Seconds Skin: No rashes, No breakdown Musculoskeletal: No Tenderness to Palpation of Joints or Extremities Lymphatic: No Cervical, Supraclavicular, or Inguinal Adenopathy Neurological: Cranial nerves II-XII grossly intact Psych/Mental Status: Flat Affect Microbiology Past 72 Hours 04/25/19 15:30 Sputum, Expectorated/Coughed Gram Stain - Final 04/25/19 15:30 Sputum, Expectorated/Coughed Respiratory Culture - Final 04/25/19 11:35 Blood Culture (Wb) - Anticubital Left Blood Culture - Preliminary No growth in 48 hours. 04/25/19 12:20 Blood Culture (Wb) - Anticubital Right Blood Culture - Preliminary No growth in 48 hours. Diagnostic Data Chest X-Ray 04/26/19 05:45 IMPRESSION: Increased markings at the left lung base suggestive of left basilar atelectasis and infiltrate. This is unchanged. The right lung base is clear. Electronically Signed: Thomas Quinn, at 8:32 EDT , Service support , Current Medications Acetaminophen (Tylenol) 650 mg PO Q6H PRN PRN PRN Reason: Fever, headache, pain Albuterol Sulfate (Ventolin Aerosols) 2.5 mg INHALATION Q4H.RT [facility] Last Admin: 04/29/19 11:15 Dose: Not Given Documented by: Amitriptyline HCl (Elavil) 5 mg PO Q8H PRN PRN Reason: AGITATION Last Admin: 04/29/19 01:00 Dose: 5 mg Documented by: Amlodipine Besylate (Norvasc) 10 mg PO DAILY [facility] Last Admin: 04/29/19 08:39 Dose: 10 mg Documented by: Aspirin (Aspirin, Baby) 81 mg PO DAILY@0800 [facility] Last Admin: 04/29/19 08:39 Dose: 81 mg Documented by: Benzonatate (Tessalon Perle) 100 mg PO TID [facility] Last Admin: 04/29/19 06:27 Dose: 100 mg Documented by: Enoxaparin Sodium (Lovenox) 40 mg SC DAILY@1000 [facility] Last Admin: 04/29/19 08:39 Dose: 40 mg Documented by: Guaifenesin/Codeine Phosphate (Robitussin Ac) 10 ml PO Q6H PRN PRN PRN Reason: COUGH/CONGESTION Latanoprost (Xalatan Opthalmic) 1 drop EACH EYE DAILY [facility] Last Admin: 04/29/19 08:49 Dose: 1 drop Documented by: Magnesium Hydroxide (Milk Of Magnesia) 30 ml PO DAILY PRN PRN PRN Reason: Constipation Last Admin: 04/26/19 17:52 Dose: 30 ml Documented by: Memantine (Namenda) 5 mg PO DAILY [facility] Last Admin: 04/29/19 08:39 Dose: 5 mg Documented by: Metoprolol Succinate (Toprol Xl (Beta Tyron)) 25 mg PO DAILY [facility] Last Admin: 04/29/19 08:40 Dose: 25 mg Documented by: Montelukast Sodium (Singulair) 10 mg PO DAILY [facility] Last Admin: 04/29/19 08:39 Dose: 10 mg Documented by: Ondansetron HCl (Zofran) 4 mg IV Q8H PRN PRN PRN Reason: NAUSEA/VOMITING Pseudoephedrine HCl (Sudafed) 30 mg PO Q6H PRN PRN PRN Reason: Sinus, nasal congestion Sodium Chloride () 10 - 40 ml IV UD PRN PRN Reason: SALINE FLUSH Last Admin: 04/26/19 15:28 Dose: 10 ml Documented by: Trazodone HCl (Desyrel) 75 mg PO QHS [facility] Last Admin: 04/28/19 21:44 Dose: 75 mg Documented by: Venlafaxine HCl (Effexor Xr) 150 mg PO QHS [facility] Last Admin: 04/28/19 21:44 Dose: 150 mg Documented by: Medical Necessity - Tobacco Use Smoking Status: Former smoker Tobacco Use: Cigarettes, Pipe Assessment/Plan All Active Problems Pneumonia (Acute) Viral bronchitis (Acute) Hypoxia (Acute) 1. URTI due to parainfluenza infection * has been afebrile, with no leucocytosis * on day 2 of empiric IV levaquin. * sputum cultured mixed respiratory andree; blood cultures showed no growth after 48 hours * will dc IV antibiotics; CXR showed left lung base atelectasis and infiltrate; however, I am not convinced patient had pneumonia due to his afebrile state with no leucocytosis * continue breathing treatments * 2. Hypoxia: patient remains on 1-2L of oxygen byb nasal canula, though he is not on oxygen at home. Likely due to URTI. GOal is to wean off oxygen. WIll need resting and ambulatory pulse ox prior to dc. 3. Physical debility and functional decline likely due to dementia: unable to take care of him at home. PT OT on board. For placement in SNF. 4. Hypertension: On Norvasc and metoprolol. Blood pressure well controlled. 5. History of prostate cancer: Status post radical prostatectomy. Stable. 6. Depression: On trazodone and Effexor 7. Dementia: On Namenda 8. History of asthma: On breathing treatments with albuterol. DVT prophylaxis: Lovenox Disposition: awaiting placement Code Visit OBSV E&M: 11016 Subsequent observation care L2
--- NOTE | 2019-04-29 15:02 | CASEMGMT ---
SW spoke with patient's daughter and . SW let them know [facility] patient. SW explained that he has not had a sitter since Monday at lunch time. SW also let them know that SW did tell them that he does try and get up and walk often. SW explained they were looking to place him in a room by the nurses station so they can keep a close eye on him. SW explained he will stay at [facility] until we get an answer from insurance. Delia SANCHEZ MSW
[2019-04-29] MEDS: traZODone 50 MG Tablet 75 MG PO (21:43)
[2019-04-29] MEDS: Venlafaxine XR 150 MG Capsule PO (21:44)
--- NOTE | 2019-04-29 22:40 | NURSING ---
Handoff report given to Meche Jama RN at this time. Meche to take over care of this patient.
[2019-04-30] VITALS (10 sets, daily range): BP systolic 107–134; BP diastolic 60–76; PULSE 69–88; RESP 16–18; TEMP 36.3–36.8; O2SAT 93–94
[2019-04-30] MEDS: Albuterol 2.5 MG/3 ML VIAL.NEB. INHALATION ×5 (02:31→22:23)
[2019-04-30] MEDS: Benzonatate 100 MG Capsule PO ×3 (05:15→21:20)
[2019-04-30] MEDS: Memantine Hydrochloride 5 MG Tablet PO (09:11)
[2019-04-30] MEDS: Montelukast 10 MG Tablet PO (09:11)
[2019-04-30] MEDS: Aspirin 81 MG TAB.CHEW PO (09:11)
[2019-04-30] MEDS: Metoprolol(XL)Succ 25 MG Tablet PO (09:12)
[2019-04-30] MEDS: amLODIPine 10 MG Tablet PO (09:12)
[2019-04-30] MEDS: Enoxaparin 40 MG/0.4 ML Syringe SC (09:12)
[2019-04-30] MEDS: Latanoprost 0.005% 1 Bottle 1 DRP EACH EYE (09:13)
--- NOTE | 2019-04-30 14:18 | CASEMGMT ---
KAM called Bebe at [facility]. She has not received approval for patient yet. She did call and leave a message with [facility]. Delia SANCHEZ MSW
--- NOTE | 2019-04-30 14:32 | PN_ITS ---
Patient Problems: Active and Suspected Problems Pneumonia (Acute) Viral bronchitis (Acute) Hypoxia (Acute) Subjective: Patient seen and examined. He was much more responsive today and said no when asked if he had any complaints. Review of systems is otherwise negative. He is awaiting placement. Vitals/I&O's: Vital Signs Temp Pulse Resp BP Pulse Ox 98.1 F 79 18 122/60 H 94 04/30/19 09:00 04/30/19 09:12 04/30/19 09:00 04/30/19 09:00 04/30/19 09:00 Oxygen Flow Rate (L/min) 2 Oxygen Delivery Method Room Air Weight: 182 lb 5.156 oz Body Mass Index (BMI) 26.9 Intake and Output for Last 24 Hours 04/28/19 04/29/19 04/30/19 23:59 23:59 23:59 Intake Total 470 / 470 1080 / 1080 350 / 350 Balance 470 / 470 1080 / 1080 350 / 350 General: Alert, No apparent distress HEENT: Atraumatic, PERRLA, EOMI, Normocephalic Oral: Dry Mucosa Neck: Supple, No JVD, Negative Carotid Bruits Lungs: Clear to auscultation, Normal air movement, No rhonchi, No wheeze, No rales Cardiovascular: Regular rate, Regular Rhythm, Normal S1, Normal S2, No murmurs Abdomen: Bowel Sounds Present, Soft, Non Tender, Non-Distended, No Hepato- splenomegaly Extremities: No clubbing, No cyanosis, No edema, Capillary Refill Less than 3 Seconds Skin: No rashes, No breakdown Musculoskeletal: No Tenderness to Palpation of Joints or Extremities Lymphatic: No Cervical, Supraclavicular, or Inguinal Adenopathy Neurological: Cranial nerves II-XII grossly intact Psych/Mental Status: Flat Affect Microbiology Past 72 Hours 04/25/19 15:30 Sputum, Expectorated/Coughed Gram Stain - Final 04/25/19 15:30 Sputum, Expectorated/Coughed Respiratory Culture - Final 04/25/19 11:35 Blood Culture (Wb) - Anticubital Left Blood Culture - Preliminary No growth in 48 hours. 04/25/19 12:20 Blood Culture (Wb) - Anticubital Right Blood Culture - Preliminary No growth in 48 hours. Current Medications Acetaminophen (Tylenol) 650 mg PO Q6H PRN PRN PRN Reason: Fever, headache, pain Albuterol Sulfate (Ventolin Aerosols) 2.5 mg INHALATION Q4H.RT [facility] Last Admin: 04/30/19 11:04 Dose: Not Given Documented by: Amitriptyline HCl (Elavil) 5 mg PO Q8H PRN PRN Reason: AGITATION Last Admin: 04/29/19 22:52 Dose: 5 mg Documented by: Amlodipine Besylate (Norvasc) 10 mg PO DAILY [facility] Last Admin: 04/30/19 09:12 Dose: 10 mg Documented by: Aspirin (Aspirin, Baby) 81 mg PO DAILY@0800 [facility] Last Admin: 04/30/19 09:11 Dose: 81 mg Documented by: Benzonatate (Tessalon Perle) 100 mg PO TID [facility] Last Admin: 04/30/19 05:15 Dose: 100 mg Documented by: Enoxaparin Sodium (Lovenox) 40 mg SC DAILY@1000 [facility] Last Admin: 04/30/19 09:12 Dose: 40 mg Documented by: Guaifenesin/Codeine Phosphate (Robitussin Ac) 10 ml PO Q6H PRN PRN PRN Reason: COUGH/CONGESTION Latanoprost (Xalatan Opthalmic) 1 drop EACH EYE DAILY [facility] Last Admin: 04/30/19 09:13 Dose: 1 drop Documented by: Magnesium Hydroxide (Milk Of Magnesia) 30 ml PO DAILY PRN PRN PRN Reason: Constipation Last Admin: 04/26/19 17:52 Dose: 30 ml Documented by: Memantine (Namenda) 5 mg PO DAILY [facility] Last Admin: 04/30/19 09:11 Dose: 5 mg Documented by: Metoprolol Succinate (Toprol Xl (Beta Tyron)) 25 mg PO DAILY [facility] Last Admin: 04/30/19 09:12 Dose: 25 mg Documented by: Montelukast Sodium (Singulair) 10 mg PO DAILY [facility] Last Admin: 04/30/19 09:11 Dose: 10 mg Documented by: Ondansetron HCl (Zofran) 4 mg IV Q8H PRN PRN PRN Reason: NAUSEA/VOMITING Pseudoephedrine HCl (Sudafed) 30 mg PO Q6H PRN PRN PRN Reason: Sinus, nasal congestion Sodium Chloride () 10 - 40 ml IV UD PRN PRN Reason: SALINE FLUSH Last Admin: 04/26/19 15:28 Dose: 10 ml Documented by: Trazodone HCl (Desyrel) 75 mg PO QHS [facility] Last Admin: 04/29/19 21:43 Dose: 75 mg Documented by: Venlafaxine HCl (Effexor Xr) 150 mg PO QHS [facility] Last Admin: 04/29/19 21:44 Dose: 150 mg Documented by: Medical Necessity - Tobacco Use Smoking Status: Former smoker Tobacco Use: Cigarettes, Pipe Assessment/Plan All Active Problems Pneumonia (Acute) Viral bronchitis (Acute) Hypoxia (Acute) 1. URTI due to parainfluenza infection * has been afebrile, with no leucocytosis * IV levaquin dc'd as no clear evidence of pneumonia * continue breathing treatments. * 2. Hypoxia: * patient remains on 1-2L of oxygen byb nasal canula, though he is not on oxygen at home. * Likely due to URTI. GOal is to wean off oxygen. WIll need resting and ambulatory pulse ox prior to dc. 3. Physical debility and functional decline likely due to dementia: awaiting placement. 4. Hypertension: On Norvasc and metoprolol. Blood pressure well controlled. 5. History of prostate cancer: Status post radical prostatectomy. Stable. 6. Depression: On trazodone and Effexor 7. Dementia: On Namenda 8. History of asthma: On breathing treatments with albuterol. DVT prophylaxis: Lovenox Disposition: awaiting placement Code Visit OBSV E&M: 62696 Subsequent observation care L2
--- NOTE | 2019-04-30 14:53 | CASEMGMT ---
KAM received a call from Bebe at [facility] and patient's case has been sent to medical review. She was going to call patient's to see if they can private pay for a little while etc. She will call SW back. In the meantime KAM spoke with patient's . She just finished talking with Bebe so she is aware he may get denied. She said Bebe is going to call her daughter to get the Elder Telephoto Engineer's information. She asked SW if we could sit down. KAM sat down with her and provided support. She was worried that people are probably thinking he isn't that bad and she should just take him home. KAM assured her that no one is thinking that and she knows her limitations and we respect this. She was feeling bad about putting him in a fci. KAM reassured her that she has made the right decision. She thanked KAM for listening. She said she was going home to rest. KAM then spoke with Bebe from [facility]. She said she spoke with patient's , daughter, and contract attorney. Apparently patient and his had an improper transfer which would make them ineligible for Medicaid. However, in order to rectify this they need to put the house back in their name and he can then qualify for medicaid. Bebe stressed the urgency with the contract attorney to get this resolved due to the situation. She has not received a denial from [employer] yet. Plan: Patient may get denied for senior care facility. His case went to medical review. Patient may be able to go to [facility] on pending Medicaid if he gets denied by [employer]. Bebe from [facility] is working with contract attorney regarding this. Delia SANDY
[2019-04-30] MEDS: traZODone 50 MG Tablet 75 MG PO (21:20)
[2019-04-30] MEDS: Venlafaxine XR 150 MG Capsule PO (21:20)
[2019-05-01] VITALS (8 sets, daily range): BP systolic 117–140; BP diastolic 66–77; PULSE 66–79; RESP 16–18; TEMP 36.6–37; O2SAT 92–94
[2019-05-01] MEDS: Albuterol 2.5 MG/3 ML VIAL.NEB. INHALATION ×3 (02:54→14:26)
[2019-05-01] MEDS: Benzonatate 100 MG Capsule PO ×2 (05:46→14:16)
[2019-05-01] MEDS: amLODIPine 10 MG Tablet PO (10:21)
[2019-05-01] MEDS: Enoxaparin 40 MG/0.4 ML Syringe SC (10:21)
[2019-05-01] MEDS: Montelukast 10 MG Tablet PO (10:21)
[2019-05-01] MEDS: Memantine Hydrochloride 5 MG Tablet PO (10:21)
[2019-05-01] MEDS: Latanoprost 0.005% 1 Bottle 1 DRP EACH EYE (10:21)
[2019-05-01] MEDS: Aspirin 81 MG TAB.CHEW PO (10:21)
[2019-05-01] MEDS: Metoprolol(XL)Succ 25 MG Tablet PO (10:22)
--- NOTE | 2019-05-01 12:43 | PN_ITS ---
Patient Problems: Active and Suspected Problems Pneumonia (Acute) Viral bronchitis (Acute) Hypoxia (Acute) Subjective: Patient seen and examined. No acute events overnight and he has remained stable. His speech that was denied by his insurance. Hospitalist did appear to peer with insurance physician today but was unsuccessful at overturning the denial. Patient has Medicaid number pending. Vitals/I&O's: Vital Signs Temp Pulse Resp BP Pulse Ox 98.4 F 78 18 121/70 H 94 05/01/19 10:20 05/01/19 10:22 05/01/19 10:20 05/01/19 10:20 05/01/19 10:20 Oxygen Flow Rate (L/min) 2 Oxygen Delivery Method Room Air Weight: 182 lb 5.156 oz Body Mass Index (BMI) 26.9 Intake and Output for Last 24 Hours 04/29/19 04/30/19 05/01/19 23:59 23:59 23:59 Intake Total 1080 / 1080 590 / 590 570 / 570 Output Total 2 / 2 2 / 2 Balance 1080 / 1080 588 / 588 568 / 568 General: Alert, No apparent distress HEENT: Atraumatic, PERRLA, EOMI, Normocephalic Oral: Dry Mucosa Neck: Supple, No JVD, Negative Carotid Bruits Lungs: Clear to auscultation, Normal air movement, No rhonchi, No wheeze, No rales Cardiovascular: Regular rate, Regular Rhythm, Normal S1, Normal S2, No murmurs Abdomen: Bowel Sounds Present, Soft, Non Tender, Non-Distended, No Hepato- splenomegaly Extremities: No clubbing, No cyanosis, No edema, Capillary Refill Less than 3 Seconds Skin: No rashes, No breakdown Musculoskeletal: No Tenderness to Palpation of Joints or Extremities Lymphatic: No Cervical, Supraclavicular, or Inguinal Adenopathy Neurological: Cranial nerves II-XII grossly intact Psych/Mental Status: Flat Affect Microbiology Past 72 Hours 04/25/19 12:20 Blood Culture (Wb) - Anticubital Right Blood Culture - Final No growth in 5 days. 04/25/19 11:35 Blood Culture (Wb) - Anticubital Left Blood Culture - Final No growth in 5 days. 04/25/19 15:30 Sputum, Expectorated/Coughed Gram Stain - Final 04/25/19 15:30 Sputum, Expectorated/Coughed Respiratory Culture - Final Current Medications Acetaminophen (Tylenol) 650 mg PO Q6H PRN PRN PRN Reason: Fever, headache, pain Albuterol Sulfate (Ventolin Aerosols) 2.5 mg INHALATION Q4H.RT [facility] Last Admin: 05/01/19 10:30 Dose: Not Given Documented by: Amitriptyline HCl (Elavil) 5 mg PO Q8H PRN PRN Reason: AGITATION Last Admin: 04/29/19 22:52 Dose: 5 mg Documented by: Amlodipine Besylate (Norvasc) 10 mg PO DAILY [facility] Last Admin: 05/01/19 10:21 Dose: 10 mg Documented by: Aspirin (Aspirin, Baby) 81 mg PO DAILY@0800 [facility] Last Admin: 05/01/19 10:21 Dose: 81 mg Documented by: Benzonatate (Tessalon Perle) 100 mg PO TID [facility] Last Admin: 05/01/19 05:46 Dose: 100 mg Documented by: Enoxaparin Sodium (Lovenox) 40 mg SC DAILY@1000 [facility] Last Admin: 05/01/19 10:21 Dose: 40 mg Documented by: Guaifenesin/Codeine Phosphate (Robitussin Ac) 10 ml PO Q6H PRN PRN PRN Reason: COUGH/CONGESTION Latanoprost (Xalatan Opthalmic) 1 drop EACH EYE DAILY [facility] Last Admin: 05/01/19 10:21 Dose: 1 drop Documented by: Magnesium Hydroxide (Milk Of Magnesia) 30 ml PO DAILY PRN PRN PRN Reason: Constipation Last Admin: 04/26/19 17:52 Dose: 30 ml Documented by: Memantine (Namenda) 5 mg PO DAILY [facility] Last Admin: 05/01/19 10:21 Dose: 5 mg Documented by: Metoprolol Succinate (Toprol Xl (Beta Tyron)) 25 mg PO DAILY [facility] Last Admin: 05/01/19 10:22 Dose: 25 mg Documented by: Montelukast Sodium (Singulair) 10 mg PO DAILY [facility] Last Admin: 05/01/19 10:21 Dose: 10 mg Documented by: Ondansetron HCl (Zofran) 4 mg IV Q8H PRN PRN PRN Reason: NAUSEA/VOMITING Pseudoephedrine HCl (Sudafed) 30 mg PO Q6H PRN PRN PRN Reason: Sinus, nasal congestion Sodium Chloride () 10 - 40 ml IV UD PRN PRN Reason: SALINE FLUSH Last Admin: 04/26/19 15:28 Dose: 10 ml Documented by: Trazodone HCl (Desyrel) 75 mg PO QHS [facility] Last Admin: 04/30/19 21:20 Dose: 75 mg Documented by: Venlafaxine HCl (Effexor Xr) 150 mg PO QHS [facility] Last Admin: 04/30/19 21:20 Dose: 150 mg Documented by: Medical Necessity - Tobacco Use Smoking Status: Former smoker Tobacco Use: Cigarettes, Pipe Assessment/Plan All Active Problems Pneumonia (Acute) Viral bronchitis (Acute) Hypoxia (Acute) 1. URTI due to parainfluenza infection * has been afebrile, with no leucocytosis * continue breathing treatments. * 2. Hypoxia: resolved. Patient now on room air. oxygen prn. 3. Physical debility and functional decline likely due to dementia: awaiting placement. 4. Hypertension: On Norvasc and metoprolol. Blood pressure well controlled. 5. History of prostate cancer: Status post radical prostatectomy. Stable. 6. Depression: On trazodone and Effexor 7. Dementia: On Namenda 8. History of asthma: On breathing treatments with albuterol. DVT prophylaxis: Lovenox Disposition: * awaiting placement. * Precert denied by insurance. * Peer to peer by hospitalist with insurance physician was unsuccessful in overturning denial. Patient has medicaid number pending. Code Visit OBSV E&M: 46341 Subsequent observation care L2
--- NOTE | 2019-05-01 13:35 | CASEMGMT ---
Patient did get denied for residential facility. Dr Arteaga did call and do a peer to peer, but the decision was upheld. KAM called Bebe at [facility] and let her know this information. She said she will talk with the family's computing machine operator as well as patient's and daughter. Await return call. Delia SANDY
--- NOTE | 2019-05-01 13:36 | CASEMGMT ---
KAM received a call from Bebe at [facility]. She spoke with family's real estate attorney and patient's daughter. She is waiting on a return call from patient's . In order to put the house back in patient and his 's names they need to get permission from the daughter and son. They got permission from the daughter, but are waiting to get a hold of the son. The son lives in [place] so they are working on reaching him. Bebe said the real estate attorney said she will get them a letter that states once the home is transferred back to patient and his 's names they will apply for Medicaid. She said if this happens they may be able to take patient today. She will let KAM know. Delia SANCHEZ MSW
--- NOTE | 2019-05-01 14:28 | PCM.TXEXTCAR ---
- Diet 04/30/19 11:09 Diet: Regular Diet Food consistency:: Soft Liquid Consistency:: Regular/Thin Is pt able to select menu?: No Diet Comments: Supervised, assist PRN, small bites/sips, seated upright at 90 degrees - Routine Orders/Code Status Enema Type: Fleetz Enema Frequency: Daily PRN Suppository Type: Dulcolax 10mg Suppository Frequency: Daily PRN - Therapies Physical Therapy: Eval and Treat Occupational Therapy: Eval and Treat - Allergies/Procedures Done in Hospital Allergies/Adverse Reactions: Allergies No Known Allergies Allergy (Verified 04/25/19 13:45) Procedures: None - Type of Care/Length of Stay Estimated LOS: Convalescent Care Less Than 30 days Type of Care Needed: Skilled Rehab Potential: Fair Prognosis: Fair - Additional Orders/Day of Discharge Day of Discharge: 05/01/19 - Follow Up Care Primary Care Physician: Pipo Lutz MD [Primary Care Provider] - Please follow up with your Primary Care Physician in: 1-2 weeks
--- NOTE | 2019-05-01 14:29 | PCM.DC.SUM ---
Discharge Date and Diagnosis - Problem List Patient Problems: Active and Suspected Problems Pneumonia (Acute) Viral bronchitis (Acute) Hypoxia (Acute) Date of Admission: 04/25/19 Date of Discharge: 05/01/19 - Primary Discharge Diagnosis Active and Suspected Problems Pneumonia (Acute) Viral bronchitis (Acute) Hypoxia (Acute) - Secondary Discharge Diagnosis Chronic Problems Asthma (Chronic) Depression (Chronic) Hypertension (Chronic) History of prostate cancer (Chronic) Dementia (Chronic) Hospital Course and Treatment Imaging Results: Diagnostic Data Chest X-Ray 04/26/19 05:45 IMPRESSION: Increased markings at the left lung base suggestive of left basilar atelectasis and infiltrate. This is unchanged. The right lung base is clear. Electronically Signed: Thomas Mohrgarrett, at 8:32 EDT , Service support , Operations: None Procedures: None Summary of Care Provided: The patient is a 83 year old M with a PMH as listed. He was admitted through the ED on 04/25/19 with a complaint of cough, sore throat and congestion. Symptoms had been going on for 2 days prior to admission, with associated low grade fever, sinus congestion, and mild sputum production. He had also become more weak and demented. In the ED, he was noted to be saturating at 90% on room air. Lab workd was unremarkable. CXR showed bilateral basilar atelectasis. He was admitted for URTI, and hypoxia likely due to the upper respiratory tract infection and probable viral bronchitis. Patient was subsequently started on empiric levaquin for probable pneumonia. However nasopharyngeal screen came back positive for parainfluenza. Urine culture and Gram stain were negative and blood cultures were negative. Antibiotics were then discontinued. Patient remained stable. He was weaned off of oxygen was saturating well on room air. Patient's insurance initially denied precertification for snf. Peer to peer done by hospitalist was unsuccessful and turning over this denial. However patient's pending Medicaid number was approved and on 05/01/2019, patient got precertification to go to a snf. He was discharged to his snf on 05/01/2019. He is follow-up with his primary care doctor within 1 week. Seen and examined prior to discharge. He had no complaints. Review of systems otherwise negative. He still did remain demented and so even though he could answer a few questions, he was not very communicative. Labs and vitals reviewed. Home medications reviewed and reconciled. o/e: Vital Signs Height 5 ft 9 in Weight: 182 lb 5.156 oz Weight in Pounds 182.3 lbs Pulse Ox 94 Temperature 97.8 F Pulse Rate 76 Respiratory Rate 16 Blood Pressure 117/69 Blood Pressure Position Semi-Fowlers [] General: Alert, No apparent distress HEENT: Atraumatic, PERRLA, EOMI, Normocephalic Oral: Dry Mucosa Neck: Supple, No JVD, Negative Carotid Bruits Lungs: Clear to auscultation, Normal air movement, No rhonchi, No wheeze, No rales Cardiovascular: Regular rate, Regular Rhythm, Normal S1, Normal S2, No murmurs Abdomen: Bowel Sounds Present, Soft, Non Tender, Non-Distended, No Hepato-splenomegaly Extremities: No clubbing, No cyanosis, No edema, Capillary Refill Less than 3 Seconds Skin: No rashes, No breakdown Musculoskeletal: No Tenderness to Palpation of Joints or Extremities Lymphatic: No Cervical, Supraclavicular, or Inguinal Adenopathy Neurological: Cranial nerves II-XII grossly intact Psych/Mental Status: Flat Affect Plan as above. Patient Problems: Active and Suspected Problems Pneumonia (Acute) Viral bronchitis (Acute) Hypoxia (Acute) - Physical Exam Vital Signs Temp Pulse Resp BP Pulse Ox 97.8 F 77 18 117/69 94 05/01/19 14:17 05/01/19 14:17 05/01/19 14:17 05/01/19 14:17 05/01/19 14:17 Oxygen Flow Rate (L/min) 2 Oxygen Delivery Method Room Air Weight: 182 lb 5.156 oz Body Mass Index (BMI) 26.9 Intake and Output for Last 24 Hours 04/29/19 04/30/19 05/01/19 23:59 23:59 23:59 Intake Total 1080 / 1080 590 / 590 570 / 570 Output Total 2 / 2 2 / 2 Balance 1080 / 1080 588 / 588 568 / 568 Microbiology Past 72 Hours 04/25/19 12:20 Blood Culture - Final Blood Culture (Wb) - Anticubital Right No growth in 5 days. 04/25/19 11:35 Blood Culture - Final Blood Culture (Wb) - Anticubital Left No growth in 5 days. Discharge Diet: Low fat/ Low Cholesterol Discharge Activity: Return to Normal Activity Call your doctor if you observe: Fever of 101 or Higher, Shortness of breath, Dizziness, Fainting spells, Swelling in the ankles Home Medications: Medications to take at Discharge Latanoprost 0.005% [Xalatan Opthalmic] 1 drop EACH EYE QHS 11/17/15 Venlafaxine HCl [Effexor] 150 mg PO QHS 11/17/15 traZODone [Desyrel] 75 mg PO QHS 11/17/15 Memantine Hydrochloride [Namenda] 5 mg PO BID 07/18/16 Albuterol Inhaler [Ventolin Hfa] 1 - 2 puff INHALATION Q4H PRN PRN #1 inhaler 07/20/16 Amlodipine [Norvasc] 10 mg PO DAILY #30 tablet 07/20/16 Aspirin [Aspirin, Baby] 81 mg PO DAILY@0800 #30 tab.chew 07/20/16 Metoprolol(XL)Succ [Toprol Xl (Beta Tyron)] 25 mg PO DAILY #30 tablet 07/20/16 Benzonatate [Tessalon Perle] 100 mg PO TID PRN 04/25/19 Montelukast Sodium [Singulair] 10 mg PO QHS 04/25/19 Primary Care Physician: Pipo Lutz MD [Primary Care Provider] - Please follow up with your Primary Care Physician in: 1-2 weeks Disposition: [facility] facility Minutes spent on discharge:: 40 Patient Condition:: Stable Medical Necessity - Tobacco Use Smoking Status: Former smoker Tobacco Use: Cigarettes, Pipe Meaningful Use Info Meaningful Use Diagnoses (Choose all that apply): None applicable Code Visit OBSV E&M: 09556 Observation care discharge
--- NOTE | 2019-05-01 14:36 | CASEMGMT ---
SW received a call from Bebe at [facility] and they can accept patient today as she did get a letter from the consumer attorney. SW notified RN and patient's who actually already knew because Bebe called her. tip tester notified physician. Await orders. Delia SANDY
--- NOTE | 2019-05-01 15:34 | CASEMGMT ---
Completed PASRR as patient was observation status and he will be a [facility] resident of SNF. Called [facility] and arranged for patient to get picked up at 5p via cot. KAM wrote this on fax face sheet and faxed orders to [facility]. KAM also notified RN, secretary to the vice president, and Bebe at [facility]. KAM attempted to call patient's 's cell phone, but the voice mail says Melanie so a message was not left. 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 All in agreement with d/c plan. Plan: [facility] under intermediate level of care on a PASRR as he was observation status and he will be a [facility] resident. Delia SANCHEZ MSW
--- NOTE | 2019-05-01 15:35 | NURSING ---
report called to YESSY Messina at the [facility] for patient discharge.
== END 2019-05-01 14:29 ==
LOC: ED 12:26 → PCU 12:52
PROVIDERS: Admitting Provider Hospitalist; Emergency Provider Emergency Medicine; Family Provider Internal Medicine; PCP Internal Medicine; Referring Provider Hospitalist; Visit Provider Student in an Organized Health Care Education/Training Program
DX: J20.4 Acute bronchitis due to parainfluenza virus (principal); J18.9 Pneumonia, unspecified organism; R09.02 Hypoxemia; F03.90 Unspecified dementia, unspecified severity, without behavioral disturbance, psychotic disturbance, mood disturbance, and anxiety; I10 Essential (primary) hypertension; Z87.891 Personal history of nicotine dependence; Z79.899 Other long term (current) drug therapy; Z79.82 Long term (current) use of aspirin; F32.9 Major depressive disorder, single episode, unspecified; Z85.46 Personal history of malignant neoplasm of prostate
CPT/HCPCS: 36415; 71045; 71046; 80048; 80053; 81001; 83605; 85025; 85610; 85730; 87040; 87070; 87205; 87633; 92526; 92610; 93005; 94640; 94667; 96361; 96365; 96366; 96367; 96372; 97110; 97116; 97162; 97166; 97530; 97535; 99218; 99285; J7030; A4216; G0378

== ENCOUNTER 2021-07-04 10:40 | Emergency (ER) | payer MEDICARE, MEDICAID, SELFPAY ==
[2021-07-04 10:43] VITALS: BP 125/86; PULSE 89; RESP 14; TEMP 37.1; O2SAT 93; BMI 24.8
--- NOTE | 2021-07-04 11:06 | ED.VIS.FALL ---
HPI HPI - Fall History of Present Illness Chief Complaint: Fall Informant: patient, spouse/S.O. and EMS Occured/Mechanism Occurred: Today Mechanism/Context: Yes same level fall Pain/Injury Pain Location: face and mouth Current Severity: Mild Maximum Severity: Mild Associated Symptoms Associated Symptoms: Negative for Parasthesias, Weakness, Loss of function, Inability to ambulate, Loss of consciousness and Amnesia Narrative Narrative: 85-year-old male suffer some mild dementia is in the memory care unit of the local nursing facility. Reportedly took a fall today causing bruising about his left eye, chipped his left upper tooth and causing a laceration on his left upper lip. Patient is unable to give any history. His is present and I discussed his care with her. Tetanus Immunization: Unknown Prior similar symptoms: No Recent Illness/Hospitalization: No PFSH PFSH Home Medications trazodone 75 mg PO QHS 11/17/15 [History Last Taken 04/24/19] venlafaxine 150 mg PO QHS 11/17/15 [History Last Taken 04/23/19] memantine 10 mg PO BID 07/18/16 [History Last Taken 04/23/19] albuterol sulfate [Ventolin HFA] 1 - 2 puff INHALATION Q4H PRN PRN #1 inhaler 07/20/16 [Rx Last Taken 04/23/19] amlodipine 10 mg PO DAILY #30 tablet 07/20/16 [Rx Last Taken 04/24/19] metoprolol succinate 25 mg PO DAILY #30 tablet 07/20/16 [Rx Last Taken 04/23/19] montelukast 10 mg PO QHS 04/25/19 [History Last Taken 04/23/19] Allergy/AdvReac Type Severity Reaction Status Date / Time No Known Allergies Allergy Verified 07/04/21 10:46 Social History Smoking Status: Unknown if ever smoked ROS ROS ED ROS Narrative Denies recent illness. Review of Systems ROS Unobtainable: due to mental status Constitutional Constitutional ED: Denies fever(s) Eyes Eyes: Denies change in vision ENT ENT ED: Denies ear pain Cardiovascular Cardiovascular: Denies chest pain Respiratory/Chest Respiratory/Chest: Denies dyspnea Gastrointestinal Gastrointestinal: Denies abdominal pain Genitourinary Genitourinary ED: Denies dysuria Musculoskeletal Musculoskeletal: Denies myalgias Integumentary Denies rash Neurologic Neurologic: Denies headache(s) Psychiatric Psychiatric: Denies depression Endocrine Endocrinology: Denies polyuria Hematologic/Lymphatic Hematologic/Lymphatic: Denies easy bruising Allergic/Immunologic Allergic/Immunologic ED: Denies urticaria EXAM Physical Exam Narrative Exam Narrative: 85-year-old male no acute distress vital signs stable and afebrile. H EENT exam he has minor bruising around the lateral aspect of his left eye. Pupils are round reactive light. He has left upper tooth is chipped and his left upper lip has a V-shaped laceration which will need repaired. He has got no other facial trauma or trauma to his scalp no hematomas. C-spine nontender trachea midline. Lungs are clear equal symmetrical heart regular rhythm rate about 90 no murmur. Chest wall ribs are nontender. Abdomen soft nontender. Pelvic girdle intact. He can move all 4 extremities. There is no deformities are nontender. 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 Neurologically he is awake his eyes are open he is a very limited informant due to his dementia. Const Vital Signs: 07/04/21 10:43 07/04/21 10:46 Temperature 98.8 F Temperature Source Temporal Pulse Rate 89 Respiratory Rate 14 Respiratory Effort Normal Non-Labored Respiratory Depth Normal Respiratory Pattern Normal Blood Pressure 125/86 H Blood Pressure Mean 99 Pulse Ox 93 Oxygen Delivery Method Room Air Positive well nourished and well developed; Negative for obese, cachectic, contractures or unkempt General Appearance ED: well developed and NAD; Negative for unkempt, cachectic or contractures Nutritional Appearance: Negative for cachectic or obese HEENT HEENT Narrative: Left upper lip V-shaped laceration. Left upper tooth chipped. trauma; Negative for tenderness Eyes PERRL and EOMs intact bilaterally Neck full ROM, no lymphadenopathy and supple General: Negative for tenderness Chest Wall inspection of chest normal and palpation of chest normal Resp normal respiratory effort, No no retractions and clear to auscultation bilaterally Auscultation: Negative for rales, rhonchi or wheezes Cardio regular rate, regular rhythm, S1 normal heart sound, S2 normal heart sound and no murmurs GI non-tender, non-distended and no masses Auscultation: normoactive bowel sounds Palpation: soft; Negative for guarding Back/Spine no CVA tenderness Cervical Spine: Negative for cervical spine tenderness Thoracic Spine / Upper Back: Negative for thoracic spinal tenderness Lumbar Spine / Lower Back: Negative for lumbar spinal tenderness Extremity normal to inspection and full ROM Neuro No oriented x3, moves all extremities and no focal motor deficits Sensorium / Orientation: alert, oriented to person, orientation impaired and confused; Negative for oriented to place, oriented to time, lethargic or stuporous Psych mental status grossly normal Appearance: Negative for unkempt Skin Skin Narrative: Left upper lip laceration. Lesions: no lesions Rashes: no rashes Trauma: laceration MDM MDM MDM Narrative Medical decision making narrative: Older male fall at the detention has dementia. No substantial injuries other than minor bruising around his left cheek and eye, left upper tooth is chipped which will to follow-up with a dentist with and will repair the left upper lip laceration and update his tetanus. He is not on blood thinners other than aspirin. Repeat exam patient is doing well at 1 PM. His left upper lip laceration was closed. 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 She is comfortable with no further testing being done. Clinically he does not need any imaging. And he will be discharged back to the extended care facility. Procedures Lacerations Left upper lip laceration: Length: 0.79 in Depth: Skin Shape: Linear Prep: Sterile Conditions Laceration repair: Lidocaine and Local Number of Sutures/[place]: 2 Suture Information: Ethilon and 5-0 Comment: Left upper lip laceration. 2 cm. Lidocaine locally. Washed with saline. Explored. Closed using 2 simple interrupted 5-0 Ethilon sutures. Proper hemostasis wound closure is obtained. Discharge Plan Triage Chief Complaint: Fall ED Provider: Keagan Mosher Dx/Rx/DC Orders Clinical Impression: Fall, Closed head injury, Laceration of skin of lip, Dental trauma Instructions: ED Head Injury (Adult), ED Laceration: All Closures Prescriptions: No Action trazodone 50 MG tablet 75 mg PO QHS RF: 0 venlafaxine 100 MG tablet 150 mg PO QHS RF: 0 memantine 5 MG tablet 10 mg PO BID RF: 0 amlodipine 10 MG tablet 10 mg PO DAILY Qty: 30 RF: 0 metoprolol succinate 25 MG tablet 25 mg PO DAILY Qty: 30 RF: 0 albuterol sulfate [Ventolin HFA] 1 INHALER inhaler 1 - 2 puff inhalation Q4H PRN PRN (Reason: Sob &/Or Wheezing) Qty: 1 RF: 0 montelukast 10 MG tablet 10 mg PO QHS RF: 0 Primary Care Provider: Yasmany Robledo Referrals: Yasmany Robledo MD [Primary Care Provider] - 7 Days for suture removal Activity Restrictions/Additional Instructions: Keep lip laceration clean. Clean daily with saline. Suture removal in 7 days. Closed head injury instructions. Dental follow-up if family wants to have the left upper tooth evaluated for repair. Disposition Disposition: Home, Self Care
[2021-07-04] MEDS: Lidocaine 1% (20 ml mdv) 20 ML Vial 10 ML INFILT (13:18)
--- NOTE | 2021-07-04 13:22 | ED.RN ---
pt going back to [facility]. eta 90 min
--- NOTE | 2021-07-04 14:47 | ED.RN ---
called RN at [facility] to notify of return
== END 2021-07-04 14:45 | disposition home or self-care (01) ==
PROVIDERS: Emergency Provider Emergency Medicine; PCP Family Medicine
DX: S01.511A Laceration without foreign body of lip, initial encounter (principal); S00.12XA Contusion of left eyelid and periocular area, initial encounter; S02.5XXA Fracture of tooth (traumatic), initial encounter for closed fracture; W19.XXXA Unspecified fall, initial encounter; Y93.9 Activity, unspecified; Y92.129 Unspecified place in nursing home as the place of occurrence of the external cause; Y99.9 Unspecified external cause status; F03.90 Unspecified dementia, unspecified severity, without behavioral disturbance, psychotic disturbance, mood disturbance, and anxiety; Z79.899 Other long term (current) drug therapy
CPT/HCPCS: 12011; 99284

== ENCOUNTER 2022-11-26 05:06 | Emergency (ER) | payer MEDICARE, MEDICAID, SELFPAY ==
[2022-11-26 05:11] VITALS: BP 140/75; PULSE 62; RESP 18; TEMP 36.2; O2SAT 98; BMI 23.1
--- NOTE | 2022-11-26 05:34 | CT_ITS ---
INDICATION: trauma EXAMINATION: CT BRAIN - CT Head or Brain W/O Contrast Injection TECHNIQUE: Multiple axial images were obtained of the head without intravenous contrast. A radiation dose optimization technique was used for this scan. IV Contrast dosage and agent: None. RADIATION DOSAGE (If Supplied By Facility): CTDIvol = ( 44.99 ) mGy, DLP = ( 849.54 ) mGycm COMPARISON: FINDINGS: BRAIN: No acute bleed. No edema. Decreased attenuation in the periventricular white matter bilaterally. White-white matter differentiation is maintained. Arterial calcifications. VENTRICLES AND SULCI: Ventricles and sulci are prominent. EXTRA-AXIAL: No hemorrhage, fluid collection, or mass. CALVARIUM / SKULL BASE: Unremarkable. FACE/SINUSES: Unremarkable. SOFT TISSUES: Soft tissue swelling with scalp hematoma in the right frontal region anteriorly. CT/Brain/Head without Contrast IMPRESSION: Scalp hematoma. No evidence of acute intracranial injury. Chronic microvascular ischemic disease. Electronically Signed: Suzan Lucia MD at 6:11 EDT ,
--- NOTE | 2022-11-26 05:34 | CT_ITS ---
INDICATION: trauma EXAMINATION: CT CERVICAL SPINE - CT Spine Cervical W/O Contrast Injection TECHNIQUE: Helically acquired images were obtained of the cervical spine. 2D reformatted images were reviewed. A radiation dose optimization technique was used for this scan. IV Contrast dosage and agent: None. RADIATION DOSAGE (If Supplied By Facility): CTDIvol = ( 24.29 ) mGy, DLP = ( 523.14 ) mGycm COMPARISON: None. FINDINGS: ALIGNMENT: Minimal anterolisthesis at C3-4, and C7-T1, and minimal retrolisthesis C6-7. Straightening of the normal curvature. MINERALIZATION: Normal. VERTEBRAL BODIES: No fracture or acute abnormality. DISC SPACES: Disc space narrowing with osteophytes most pronounced C4-C7. POSTERIOR ELEMENTS: Facet arthropathy at essentially all levels. SPINAL CANAL: Decreased AP diameter secondary to posterior disc/osteophytes most pronounced at C5-6 and C6-7. PARASPINAL SOFT TISSUES: Unremarkable. OTHER: None. CT/Spine Cervical without Contras IMPRESSION: No evidence of fracture or traumatic subluxation. Multilevel anterolisthesis and retrolisthesis likely secondary to degenerative changes. Straightening of the normal curve may be due to positioning or muscle spasm. Extensive degenerative changes with multilevel central canal stenosis. If there are any neurologic findings, MRI may be helpful for further evaluation. Electronically Signed: Suzan Lucia MD at 6:16 EDT ,
--- NOTE | 2022-11-26 05:36 | EDS_ITS ---
HPI History of Present Illness Chief Complaint: Head Injury Informant: family (Daughter), EMS and SNF Onset/Context/Timing Onset: Today Mechanism/Context: Fall Location: Right frontal and posterior neck Worsened by: Nothing Relieved by: Nothing Associated Symptoms Associated Symptoms: Negative for Parasthesias, Weakness, Loss of function, Inability to ambulate or Loss of consciousness Narrative Narrative: Patient presents after a fall that occurred this morning. Patient has a history of dementia and is a very poor informant. residential staff states the patient fell this morning and hit his forehead. residential staff is uncertain if the patient had a loss of consciousness. Daughter states patient's immunizations are up-to-date. Daughter states patient is acting normally per his normal self. Daughter states he actually is more awake and alert today than he was yesterday. Patient complains of pain in his neck as well as his right forehead. Tetanus Immunization: <5 years [facility] Medical History Asthma Cardiac murmur, unspecified Cognitive communication deficit COVID-19 Dementia Heart failure, unspecified Hypertension Major depressive disorder, single episode, unspecified Malignant neoplasm of prostate Unspecified dementia, unspecified severity, without behavioral disturbance, psychotic disturbance, mood disturbance, and anxiety Unspecified glaucoma Home Medications venlafaxine 100 mg tablet 37.5 mg PO QHS 11/17/15 [History Last Taken 04/23/19] memantine 5 mg tablet 10 mg PO BID 07/18/16 [History Last Taken 04/23/19] albuterol sulfate 90 mcg/actuation aerosol inhaler (Ventolin HFA) 1 - 2 puff inhalation Q4H PRN PRN Sob &/Or Wheezing ##1 07/20/16 [Rx Last Taken 04/23/19] amlodipine 10 mg tablet 10 mg PO DAILY ##30 07/20/16 [Rx Last Taken 04/24/19] metoprolol succinate 25 mg tablet,extended release 24 hr 25 mg PO DAILY ##30 07/20/16 [Rx Last Taken 04/23/19] montelukast 10 mg tablet 10 mg PO QHS 04/25/19 [History Last Taken 04/23/19] latanoprost 0.005 % eye drops 1 drp EACH EYE QHS 11/26/22 [History Last Taken Unknown] loratadine 10 mg capsule 10 mg PO DAILY 11/26/22 [History Last Taken Unknown] mirtazapine 15 mg tablet 15 mg PO DAILY 11/26/22 [History Last Taken Unknown] venlafaxine 75 mg tablet 75 mg PO QHS 11/26/22 [History Last Taken Unknown] Allergy/AdvReac Type Severity Reaction Status Date / Time No Known Allergies Allergy Verified 11/26/22 05:08 Surgical History unable to obtain Social History Smoking Status: Unknown if ever smoked ROS ROS ED Review of Systems ROS Unobtainable: due to mental condition EXAM Physical Exam Const Vital Signs: 11/26/22 05:11 11/26/22 05:15 Temperature 97.2 F L Temperature Source Temporal Pulse Rate 62 Respiratory Rate 18 Respiratory Effort Normal Respiratory Depth Normal Respiratory Pattern Normal Blood Pressure 140/75 H Blood Pressure Mean 96 Pulse Ox 98 Oxygen Delivery Method Room Air Room Air Positive well nourished and well developed General Appearance ED: well developed and NAD HEENT HEENT Narrative: There is a right frontal hematoma. There is a 2 cm linear laceration over the hematoma. There is no bony crepitance or step-off. There is also a superficial skin tear over the bridge of the nose. There is mild tenderness over the bridge of the nose. There is no epistaxis. There is no septal deviation or septal hematoma. Eyes PERRL and EOMs intact bilaterally Neck full ROM Neck Narrative: There is mild tenderness of the lower cervical paraspinal muscles and lower cervical spine. There is no bony crepitance or step-off. Range of motion was slightly limited in all motions of the cervical spine secondary to pain. Chest Wall inspection of chest normal and palpation of chest normal Resp normal respiratory effort and clear to auscultation bilaterally Cardio regular rhythm Rate: regular rate GI non-tender Palpation: soft Extremity normal to inspection and full ROM General Extremety ED: Negative for deformity, edema or tenderness General Extremity: Negative for deformity or edema Neuro CN's II-XII intact bilaterally, moves all extremities, no focal motor deficits and no sensory deficits noted [place] Coma Scale: document GCS findings Spontaneous Obeys Commands Confused 14 Sensorium / Orientation: alert Motor Exam: strength 5/5 throughout Psych mental status grossly normal PROC Procedures Lacerations Right forehead: Length: 2 cm Depth: Sub Q Shape: Linear Prep: Sterile Conditions and Chlorhexadine Laceration repair: Dermabond and Wound explored Bridge of nose: Length: 0.8 cm Depth: Skin Shape: Linear Prep: Sterile Conditions and Chlorhexadine Laceration repair: Dermabond and Wound explored MDM MDM MDM Narrative Medical decision making narrative: Differential diagnosis includes intracranial bleeding, frontal hematoma, laceration, closed head injury, nasal fracture, cervical spine fracture, cervical strain, and fall. CT scan of the brain will be obtained to assess for intracranial bleeding. CT scan of the cervical spine will be obtained to assess for cervical spine fracture and spondylolisthesis. Radiography Diagnostic Testing: Clinical Impression(s) from Imaging Studies Brain CT 11/26/22 05:34 IMPRESSION: Scalp hematoma. No evidence of acute intracranial injury. Chronic microvascular ischemic disease. Electronically Signed: Suzan Lucia MD at 6:11 EDT , Cervical Spine CT 11/26/22 05:34 IMPRESSION: No evidence of fracture or traumatic subluxation. Multilevel anterolisthesis and retrolisthesis likely secondary to degenerative changes. Straightening of the normal curve may be due to positioning or muscle spasm. Extensive degenerative changes with multilevel central canal stenosis. If there are any neurologic findings, MRI may be helpful for further evaluation. Electronically Signed: Suzan Lucia MD at 6:16 EDT , CT scan of the brain was obtained. There is no acute intracranial abnormality. There is a scalp hematoma noted. There are chronic microvascular ischemic changes. This was interpreted by the radiologist and was also independently reviewed by myself. CT scan of the cervical spine was obtained. There is no acute fracture or subluxation. There is multiple degenerative changes. This was interpreted by the radiologist and was also independently reviewed by myself. Treatment and Re-Evaluation Narrative: The wound over the right eyebrow was cleaned and anesthetized with LET gel. The wound over the bridge of the nose was cleaned. The wounds were closed with Dermabond skin adhesive. Patient tolerated the procedure well. Nursing staff was instructed to avoid Neosporin, bacitracin, triple antibiotic ointment, or Vaseline-based ointments. Patient was instructed to follow-up with his primary care physician in 5 to 7 days for wound recheck. Daughter understood and was agreeable with the plan. All questions were answered. Discharge Plan Triage Chief Complaint: Head Injury ED Provider: David Arellano Dx/Rx/DC Orders Clinical Impression: Fall, Closed head injury, Laceration of forehead, Nasal laceration Instructions: ED Head Injury (Adult), ED Laceration, Face: Skin Glue Prescriptions: No Action venlafaxine 100 MG tablet 37.5 mg PO QHS Label Comments: mental health memantine 5 MG tablet 10 mg PO BID Label Comments: dementia amlodipine 10 MG tablet 10 mg PO DAILY Qty: 30 0RF Label Comments: blood pressure metoprolol succinate 25 MG tablet 25 mg PO DAILY Qty: 30 0RF Label Comments: heart rate albuterol sulfate [Ventolin HFA] 1 INHALER inhaler 1 - 2 puff inhalation Q4H PRN PRN (Reason: Sob &/Or Wheezing) Qty: 1 0RF Label Comments: breathing montelukast 10 MG tablet 10 mg PO QHS latanoprost 0.005 % drops 1 drp EACH EYE QHS venlafaxine 75 mg tablet 75 mg PO QHS mirtazapine 15 mg Tablet 15 mg PO DAILY loratadine 10 mg Capsule 10 mg PO DAILY Primary Care Provider: Yasmany Robledo Referrals: Yasmany Robledo MD [Primary Care Provider] - 5-7 Days Disposition Disposition: Home, Self Care
[2022-11-26] MEDS: Lidocaine/Epi/Tetracaine 50 ML 1 APPLIC TOPICAL (06:04)
--- NOTE | 2022-11-26 06:46 | NURSING ---
CALLED [facility], ETA IS 30 MIN
== END 2022-11-26 07:31 | disposition home or self-care (01) ==
PROVIDERS: Emergency Provider Emergency Medicine; PCP Family Medicine; Visit Provider Emergency Medicine
DX: S01.81XA Laceration without foreign body of other part of head, initial encounter (principal); F03.90 Unspecified dementia, unspecified severity, without behavioral disturbance, psychotic disturbance, mood disturbance, and anxiety; I11.0 Hypertensive heart disease with heart failure; I50.9 Heart failure, unspecified; S01.21XA Laceration without foreign body of nose, initial encounter; J45.909 Unspecified asthma, uncomplicated; W19.XXXA Unspecified fall, initial encounter; Y92.129 Unspecified place in nursing home as the place of occurrence of the external cause
CPT/HCPCS: 12013; 70450; 72125; 99284